=== PATIENT | female | born 1955 | race African-American/Black ===

== ENCOUNTER 2018-03-21 06:29 | Day surgery (SDC) | payer OTHER, MEDICARE ==
[~2018-03-21] VITALS: Ht 160 cm; Wt 84.1 kg
--- NOTE | ~2018-03-21 | OP ---
PATIENT NAME: DEON MASTERS MEDICAL RECORD: [id number] :59 LOCATION:D.M2 D.2102 ADMISSION DATE: SURGEON: CHRISTOPHER DUQUE MD DATE OF OPERATION: 03/21/2018 REFERRING PHYSICIAN: Jacob العراقي MD PREOPERATIVE DIAGNOSIS: Secondary hyperparathyroidism of renal origin. POSTOPERATIVE DIAGNOSIS: Secondary hyperparathyroidism of renal origin. OPERATION PERFORMED: Neck exploration with excision of two and one-half parathyroid glands. SURGEON: Christopher Duque MD ANESTHESIA: General endotracheal per PETAL SHAPER HAND. PREOPERATIVE NOTE: Ms. Masters is a very nice 62-year-old -Somali female with chronic renal insufficiency, who is not on dialysis but has severe secondary hyperparathyroidism. She is brought to the hospital today on Dr. Jacob العراقي's referral for her to undergo neck exploration and hopefully [id number] gland parathyroidectomy. Under general endotracheal anesthesia, the patient was placed in the supine position and prepped and draped in a sterile manner. A transverse cervical-collar type incision was made and flaps were raised with electrocautery. The strap muscles were in the midline and the anterior surface of the thyroid revealed. Dissection on the left first proceeded with mobilization of the mid and lower poles and full mobilization of the superior pole of the left lobe of the gland. The recurrent laryngeal nerve was identified and carefully protected throughout the operation. I rather quickly found adjacent to the superior pole of the thyroid that there was a large parathyroid gland. It was dissected from the surrounding tissues. Hemostasis was obtained with the Harmonic scalpel. The lesion was totally excised and sent for frozen section, which confirmed it to be parathyroid. I dissected inferiorly and I was unable to identify a left lower gland. I went on then to the patient's right side. The same thing was done with mobilization of the thyroid lobe and identification and preservation of the recurrent laryngeal nerve. Harmonic scalpel was again used for greater part of the dissection. The patient was found to have an enlarged right upper parathyroid and a large lower right parathyroid gland. The lower gland was excised and confirmed on frozen section to be parathyroid. The upper gland was divided with Harmonic scalpel, leaving approximately half of the gland, which appeared to be adequately vascularized. The excised specimen was sent for frozen section, which confirmed it to be parathyroid. I went back to the patient's left side and did extended dissection in upper mediastinum, tracheoesophageal groove, and in the carotid sheath; and I was unable to locate the left inferior parathyroid gland. I did excise some tissue which I first thought might be a lymph node, which actually was partially cystic and filled with clear fluid, which ruptured during its dissection. The lesion contained about 1 to 2 or 3 cc of this fluid. That lesion was sent for frozen section and was identified as fat. During the dissection, I took another specimen from lower neck and upper mediastinum, which I had no confidence that it was parathyroid and this was sent for just permanent section. I elected to stop the procedure without finding the left lower OPERATIVE REPORT [id number] DEON MASTERS parathyroid gland. The wound was irrigated with antibiotic-containing saline and hemostasis deemed adequate, though the patient was given 20 mcg of DDAVP. I drained the wound with a 10-mm fluted flat drain, which was split and used to drain both sides of the trachea. It was brought out through a midline stab incision and attached to suction. The strap muscles were then reapproximated in the midline with interrupted 3-0 Vicryl. The wound was then irrigated with and infiltrated with 0.25% Marcaine without epinephrine. The platysma was then reapproximated with interrupted inverted 3-0 Vicryl and skin was closed with a running intracuticular 4-0 Stratafix. The incision was then sealed with glue and dressed with Maxorb Ag, Tegaderm, and Cavilon skin prep. A chlorhexidine BioPatch was placed around the drain at its exit site and further sterile dressings over that. The patient was extubated and the cord was examined and noted to be in normal position. Subsequently, the patient was fully awakened, and with no respiratory distress, taken to the recovery room. Blood loss during the operation, I estimated, about 25 cc, none was replaced. All sponges, instruments, and needles were accounted for. One 10-mm flat Bard fluted drain was utilized and there were, I believe, a total of 5 specimens sent for frozen and permanent section histology. PLAN: The patient will need to stay in the hospital at least overnight so that we can monitor her response as to serum calcium levels, etc. It is quite possible that she will be stable and able to go home tomorrow. The J-P drain should be hopefully removed tomorrow morning, certainly before she goes home. TRANSINT:[id number] Voice Confirmation ID: [id number] DOCUMENT ID: [id number] CHRISTOPHER DUQUE MD CC: JACOB العراقي [phone] DICTATION DATE: 03/21/18 132 SNAGGER: 03/21/18 194 [facility] [address] [place] [id number]
[~2018-03-21 06:29] MED LIST: CLARITIN 10 MG10 MG PO; COZAAR100 MG PO; FERROUS SULFAT325 MG PO; HYDROCODON-ACE1 EAC7 PO; IMODIUM2 MG PO; LASIX20 MG PO; LIPITOR10 MG; LIPITOR10 MG PO; MAXITROL EYE DRO5 ML EACH EYE; MUCOMYST 2800 MG/4 M PO; NEO; NOVOLOG MIX 70/10 ML SQ; PLAQUENIL200 MG PO; PLAVIX75 MG PO; POLY; RENVELA800 MG PO; TOPAMAX25 MG PO; ULTRAM50 MG PO; VENOFER100 MG/5 M IV; VITAMIN B-12500 MC1 PO; VITAMIN D31000 UNIT PO; [UNRECOGNIZED DRUG - OTHER]; [UNRECOGNIZED DRUG - OTHER]; hydroxychloroquine
[2018-03-21 06:53] LABS: BASOPHILS 0.5 % (0-2); HEMOGLOBIN 11.3 g/dL (12-16); IMMATURE GRANULOCYTES 0.3 % (0-5); LYMPHOCYTES 21.7 % (15-50); MCH 31.8 pg (26.0-34.0); MCHC 32.3 g/dL (31.0-37.0); MCV 98.6 fL (80.0-100.0); MEAN PLATELET VOLUME 8.9 fL (7.4-10.4); MONOCYTES 5.5 % (2-11); PLATELET COUNT 211 10x3/uL (130-400); RBC 3.55 10x6/uL (4.00-5.40); WBC 9.1 10x3/uL (4.8-10.8)
[2018-03-21 07:05] LABS: ANION GAP 15.1 mmol/L (8-16); CALCIUM 9.3 mg/dL (8.5-10.1); CARBON DIOXIDE 27.7 mmol/L (21.0-32.0); CREATININE - SERUM 6.7 mg/dL (0.6-1.3); POTASSIUM - SERUM 3.8 mmol/L (3.5-5.1)
[2018-03-21 07:30] LABS: APTT 29.4 SECONDS (22.8-39.4); INR 0.96 (0.85-1.17); PROTIME 12.4 SECONDS (11.6-15.0)
[2018-03-21] MEDS ORDERED: NOVOLIN 70/30 110 ML SC (09:25)
[2018-03-21] MEDS ORDERED: NORVASC5 MG PO (09:29)
[2018-03-21] MEDS ORDERED: HYDRALAZINE HCL50 MG PO (09:30)
[2018-03-21 09:42] VITALS: BMI 32.8
[2018-03-21 13:58] VITALS: BP 134/63
[2018-03-21 15:19] VITALS: BP 134/63; Ht 160 cm; Wt 84.1 kg
[2018-03-21 16:47] LABS: CALCIUM 8.9 mg/dL (8.5-10.1)
[2018-03-21 16:52] VITALS: BP 124/65
[2018-03-21 20:00] VITALS: BP 106/59
[2018-03-22] VITALS: BP 105/58
[2018-03-22 04:00] VITALS: BP 94/47
[2018-03-22 08:38] VITALS: BP 98/52
[2018-03-22 12:01] VITALS: BP 112/58
[2018-03-22 16:31] VITALS: BP 118/64
== END 2018-03-22 20:28 | disposition home or self-care (01) ==
LOC: D.OPS 06:29 → D.M2 13:40 → D.OPS 03-22 20:28
PROVIDERS: Internal Medicine Nephrology; Surgery
DX: N25.81 Secondary hyperparathyroidism of renal origin (principal)

== ENCOUNTER 2018-07-31 16:10 | Inpatient (IN) | payer OTHER, MEDICARE ==
[~2018-07-31] VITALS: Ht 160 cm; Wt 89.7 kg
[~2018-07-31 16:10] MED LIST changes: +HYDRALAZINE HCL50 MG PO; +NORVASC5 MG PO; +NOVOLIN 70/30 110 ML SC
--- NOTE | 2018-07-31 16:51 | NUR ---
PT LEAVING THE ED VIA WHEELCHAIR AT THIS TIME, GOING TO MEDICAL IMAGING. WOUND CULTURE SWAB SENT TO THE LAB.
[2018-07-31 17:04] LABS: HEMATOCRIT 33.3 % (36.0-48.0); HEMOGLOBIN 10.8 g/dL (12-16); MCH 31.2 pg (26.0-34.0); MCHC 32.4 g/dL (31.0-37.0); MCV 96.2 fL (80.0-100.0); MEAN PLATELET VOLUME 9.4 fL (7.4-10.4); PLATELET COUNT 270 10x3/uL (130-400); RBC 3.46 10x6/uL (4.00-5.40); RDW 14.4 % (11.5-14.5); WBC 23.7 10x3/uL (4.8-10.8)
[2018-07-31 17:12] LABS: ALBUMIN 2.9 g/dL (3.4-5.0); ANION GAP 16.6 mmol/L (8-16); BILIRUBIN - TOTAL 0.45 mg/dL (0.2-1.3); CALCIUM 8.5 mg/dL (8.5-10.1); CARBON DIOXIDE 27.2 mmol/L (21.0-32.0); CREATININE - SERUM 6.7 mg/dL (0.6-1.3); POTASSIUM - SERUM 3.8 mmol/L (3.5-5.1); PROTEIN - SERUM 8.7 g/dL (6.4-8.2)
--- NOTE | 2018-07-31 17:40 | NUR ---
URINE SAMPLE SENT TO THE LAB AT THIS TIME.
[2018-07-31 17:47] LABS: LYMPHOCYTES 7 % (15-50); MONOCYTES 2 % (2-11); NEUTROPHILS 91 % (40-80); PLATELET ESTIMATE NORMAL
[2018-07-31 17:54] LABS: APPEARANCE HAZY (CLEAR); BILIRUBIN NEGATIVE (NEGATIVE); COLOR YELLOW (YELLOW); GLUCOSE NEGATIVE (NEGATIVE); KETONE NEGATIVE (NEGATIVE); NITRITE NEGATIVE (NEGATIVE); PROTEIN 1+ mg/dL (NEGATIVE); UROBILINOGEN NORMAL (NORMAL)
[2018-07-31 17:55] LABS: BACTERIA MANY /hpf (NONE SEEN); RED CELLS - URINE 0-5 /hpf (0-5); WHITE CELLS - URINE >50 /hpf (0-5)
--- NOTE | 2018-07-31 19:03 | NUR ---
HAND-OFF REPORT GIVEN TO JACOB Fernandez RN.
[2018-07-31 20:57] VITALS: BP 115/76
--- NOTE | 2018-07-31 21:04 | NUR ---
REPORT RECEIVED FROM JACOB CANDELARIO RN.
[2018-08-01] VITALS: BP 109/43; BP 162/95
[2018-08-01 01:46] VITALS: BP 152/93; BMI 36.7
[2018-08-01 04:00] VITALS: BP 116/44
[2018-08-01] MEDS ORDERED: RENVELA800 MG PO (04:45)
[2018-08-01 05:50] LABS: ANION GAP 15.2 mmol/L (8-16); CALCIUM 8.1 mg/dL (8.5-10.1); CARBON DIOXIDE 27.4 mmol/L (21.0-32.0); CREATININE - SERUM 7.7 mg/dL (0.6-1.3); PHOSPHOROUS 2.5 mg/dL (2.5-4.9); POTASSIUM - SERUM 3.6 mmol/L (3.5-5.1)
[2018-08-01 06:12] LABS: BASOPHILS 0.3 % (0-2); EOSINOPHILS 1.7 % (0-7); HEMATOCRIT 29.1 % (36.0-48.0); HEMOGLOBIN 9.2 g/dL (12-16); IMMATURE GRANULOCYTES 0.5 % (0-5); LYMPHOCYTES 5.8 % (15-50); MCH 30.5 pg (26.0-34.0); MCHC 31.6 g/dL (31.0-37.0); MCV 96.4 fL (80.0-100.0); MEAN PLATELET VOLUME 9.6 fL (7.4-10.4); MONOCYTES 9.4 % (2-11); NEUTROPHILS 82.3 % (40-80); PLATELET COUNT 260 10x3/uL (130-400); RBC 3.02 10x6/uL (4.00-5.40); RDW 14.5 % (11.5-14.5); WBC 18.4 10x3/uL (4.8-10.8)
[2018-08-01 09:57] VITALS: BP 115/57
[2018-08-01 12:39] VITALS: BMI 36.6
[2018-08-01 16:30] VITALS: Ht 160 cm; Wt 89.7 kg
--- NOTE | 2018-08-01 17:07 | NUR ---
WOUND CULTURE SENT TO LAB FROM RIGHT FOOT.
--- NOTE | 2018-08-01 18:45 | NUR ---
PT LAYING IN BED WITH EYES CLOSED, RESPIRATIONS EVEN AND UNALBORED, CALL LIGHT IN REACH, WILL CONTINUE PLAN OF CARE.
--- NOTE | 2018-08-01 19:55 | NUR ---
INITIAL ASSESSMENT COMPLETED - PT A/O X4, PAIN 02/06. ADMINISTERED PRESCRIBED ANALGESIC PER JUL. R FA IV SL, PATENT, C/D/I. NO OTHER NEEDS NOTED AT THIS TIME. VSS. RR EVEN AND UL. CL IN REACH, SR UP X2, BED IN LOWEST POSITION. WCTM AND FOLLOW POC.
[2018-08-01 20:00] VITALS: BP 121/31
--- NOTE | 2018-08-01 20:00 | NUR ---
INITIAL ASSESSMENT COMPLETED - PT A/O X4, R HAND PIV SL'D, PATENT, C/D/I. IVPB K+ BEGAN AT 2029. PT STATES "IT BURNED AND I WAS NAUSEATED, AND I FELT LIKE I WAS ABOUT TO PASS OUT, BUT IT'S GONE AWAY NOW MOSTLY." NOTIFIED RENAL CLERICAL SUPERVISOR RV SERVICE TECHNICIAN FOR ANTIEMETIC, AND NO CALL BACK. LINE FLUSHED WITH D5NS PER ORDER AND SECOND IVPBG K+ INFUSION STARTED AT 2144. NO C/O PAIN OR DISCOMFORT AT SITE. PT STATES THE TINGLING IN HER HANDS HAS LEFT AND HER EXTREMITIES FEEL NORMAL NOW. PIV STILL PATENT, C/D/I. PT NOW RESTING IN BED COMFORTABLY, NO OTHER NEEDS NOTED AT THIS TIME. CL IN REACH, SR UP X2, BED IN LOWEST POSITION. WCTM AND FOLLOW POC.
[2018-08-01 21:28] LABS: MAGNESIUM - SERUM 1.7 mg/dL (1.8-2.4); VANCOMYCIN - RANDOM 9.1 ug/mL (10.0-20.0)
--- NOTE | 2018-08-02 03:05 | NUR ---
TO PT ROOM VIA FSBS Q5. BS 126, PT WAS RESTING IN BED WITH EYES CLOSED. RR EVEN AND UL, NO S/S OF DISTRESS. 3 AM ABX STARTED. NO OTHER NEEDS AT THIS TIME. VSS. CL IN REACH, SR UP X2, BED IN LOWEST POSITION.
[2018-08-02 04:00] VITALS: BP 118/46
[2018-08-02 06:17] LABS: BASOPHILS 0.3 % (0-2); EOSINOPHILS 2.7 % (0-7); HEMATOCRIT 28.5 % (36.0-48.0); HEMOGLOBIN 9.1 g/dL (12-16); IMMATURE GRANULOCYTES 0.5 % (0-5); MCH 30.7 pg (26.0-34.0); MCHC 31.9 g/dL (31.0-37.0); MCV 96.3 fL (80.0-100.0); MEAN PLATELET VOLUME 9.5 fL (7.4-10.4); MONOCYTES 9.7 % (2-11); NEUTROPHILS 78.8 % (40-80); PLATELET COUNT 266 10x3/uL (130-400); RBC 2.96 10x6/uL (4.00-5.40); RDW 14.6 % (11.5-14.5); WBC 15.6 10x3/uL (4.8-10.8)
[2018-08-02 06:34] LABS: ANION GAP 16.1 mmol/L (8-16); CALCIUM 8.1 mg/dL (8.5-10.1); CARBON DIOXIDE 26.7 mmol/L (21.0-32.0); CREATININE - SERUM 8.8 mg/dL (0.6-1.3); POTASSIUM - SERUM 3.8 mmol/L (3.5-5.1); VANCOMYCIN - RANDOM 9.4 ug/mL (10.0-20.0)
[2018-08-02 06:39] LABS: PHOSPHOROUS 3.3 mg/dL (2.5-4.9)
[2018-08-02 09:34] VITALS: BP 115/58
--- NOTE | 2018-08-02 11:38 | NUR ---
I have reviewed this patient and I concur with the Shift Assessment completed by the Licensed Practical Nurse today this shift.
[2018-08-02 12:13] VITALS: BP 131/54
[2018-08-02 20:00] VITALS: BP 106/47
--- NOTE | 2018-08-02 20:00 | NUR ---
INITIAL ASSESSMENT COMPLETED - PT A/O X4, STATES SHE HAD A MUCH BETTER DAY TODAY. R FA PIV INFILTRATED, DC'S WITH CATH INTACT. VSS AND RR EVEN AND UL ON ROOM AIR. R FOOT DRESSING C/D/I. DENIES ANY PAIN OR NEEDS AT THIS TIME. WCTM AND FOLLOW POC.
--- NOTE | 2018-08-02 22:15 | NUR ---
20G INSERTED INTO R FA PER IZAIAH GALLAGHER. PIV PATENT, C/D/I.
[2018-08-03] VITALS: BP 110/50
[2018-08-03 04:00] VITALS: BP 110/54
[2018-08-03 05:56] LABS: BASOPHILS 0.4 % (0-2); EOSINOPHILS 3.4 % (0-7); HEMOGLOBIN 9.1 g/dL (12-16); IMMATURE GRANULOCYTES 0.5 % (0-5); LYMPHOCYTES 8.1 % (15-50); MCH 30.2 pg (26.0-34.0); MCHC 31.4 g/dL (31.0-37.0); MCV 96.3 fL (80.0-100.0); MEAN PLATELET VOLUME 9.5 fL (7.4-10.4); MONOCYTES 10.3 % (2-11); NEUTROPHILS 77.3 % (40-80); PLATELET COUNT 274 10x3/uL (130-400); RBC 3.01 10x6/uL (4.00-5.40); RDW 14.4 % (11.5-14.5); WBC 13.6 10x3/uL (4.8-10.8)
[2018-08-03 06:23] LABS: ANION GAP 13.3 mmol/L (8-16); CALCIUM 7.7 mg/dL (8.5-10.1); PHOSPHOROUS 3.1 mg/dL (2.5-4.9); POTASSIUM - SERUM 3.3 mmol/L (3.5-5.1); VANCOMYCIN - RANDOM 6.2 ug/mL (10.0-20.0)
--- NOTE | 2018-08-03 07:45 | NUR ---
AM ROUNDS COMPLETED. INTRODUCED MYSELF TO PT PRIMARY RN FOR TODAYS SHIFT. PT IS A&O SITTING UP IN BED RESTING QUIETLY. SHIFT ASSESSMENT COMPLETED. PT STATES SHE IS FEELING WELL OVERALL. DENIES ANY CURRENT PAIN OR NEEDS. CL IN REACH, BED IN LOWEST, SIDE RAILS X2. WILL CTM.
[2018-08-03 08:50] VITALS: BP 143/60
[2018-08-03 12:40] VITALS: BP 138/65
--- NOTE | 2018-08-03 15:06 | NUR ---
PT C/O ACHING HEADACHE REQUESTING AND PROVIDED WITH PRN TRAMADOL. PT VOICED THANKS AND IS RESTING QUIETLY IN BED WITH AT BEDSIDE. CL IN REACH, BED IN LOWEST, SIDE RAILS X2. NO CURRENT NEEDS. WILL CTM.
--- NOTE | 2018-08-03 16:09 | NUR ---
AT BEDSIDE PERFORMING DRSG CHANGE. NO NEW ORDERS OR DRSG CHANGES. HE WILL CONTINUE TO TREAT HIMSELF. PT RESTING QUIETLY IN BED WITH AT BEDSIDE. NEW DRSG NOW IN PLACE. CDI NO CURRENT NEEDS.
[2018-08-03 20:00] VITALS: BP 122/45
--- NOTE | 2018-08-03 20:00 | NUR ---
INITIAL ASSESSMENT COMPLETED - PT RESTING IN BED. A/O X4. R FA PIV INFUSING AT 5 ML/HR KVO. REINFORCED WITH PT TO MAINTAIN NPO STATUS AFTER MIDNIGHT, PT VERBALIZED UNDERSTANDING. R FOOT DRESSING C/D/I. NO PAIN OR DISCOMFORT NOTED AT THIS TIME. WCTM AND FOLLOW POC. CL IN REACH, SR UP X2, BED IN LOWEST POSITION.
[2018-08-04] VITALS: BP 126/48
[2018-08-04 04:00] VITALS: BP 139/50
[2018-08-04 06:07] LABS: BASOPHILS 0.5 % (0-2); EOSINOPHILS 3.3 % (0-7); HEMATOCRIT 29.2 % (36.0-48.0); HEMOGLOBIN 9.2 g/dL (12-16); IMMATURE GRANULOCYTES 0.4 % (0-5); LYMPHOCYTES 10.1 % (15-50); MCH 30.4 pg (26.0-34.0); MCHC 31.5 g/dL (31.0-37.0); MCV 96.4 fL (80.0-100.0); MEAN PLATELET VOLUME 9.3 fL (7.4-10.4); MONOCYTES 12.1 % (2-11); NEUTROPHILS 73.6 % (40-80); PLATELET COUNT 283 10x3/uL (130-400); RBC 3.03 10x6/uL (4.00-5.40); RDW 14.5 % (11.5-14.5); WBC 11.7 10x3/uL (4.8-10.8)
[2018-08-04 06:26] LABS: ANION GAP 16.7 mmol/L (8-16); CALCIUM 7.5 mg/dL (8.5-10.1); CARBON DIOXIDE 29.8 mmol/L (21.0-32.0); POTASSIUM - SERUM 3.5 mmol/L (3.5-5.1); VANCOMYCIN - RANDOM 21.8 ug/mL (10.0-20.0)
[2018-08-04 06:27] LABS: PHOSPHOROUS 4.2 mg/dL (2.5-4.9)
--- NOTE | 2018-08-04 07:45 | NUR ---
AM ROUNDS COMPLETED. INTRODUCED MYSELF TO PT PRIMARY RN FOR TODAYS SHIFT. PT IS A&O SITTING UP IN BED RESTING QUIETLY. PT IS NPO FOR PROCEDURE TODAY AND VERBALIZED UNDERSTANDING. SHIFT ASSESSMENT COMPLETED. NO CHANGES NOTED FROM YESTERDAYS ASSESSMENT. PTS R.FOOT REMAINS WRAPPED FROM YESTERDAY. SCANT AMOUNT OF SEROSANGEOUS NOTED ON DRSG. WILL LEAVE FOR NOW PER . PT DENIES ANY CURRENT PAIN OR NEEDS AT THIS TIME. CL IN REACH, BED IN LOWEST, SIDE RAILS X2. WILL CTM.
[2018-08-04 08:48] VITALS: BP 116/67
--- NOTE | 2018-08-04 08:55 | NUR ---
PT HAD HIBICLENS BATH AND IS NPO READY FOR SURGERY CONSENTS SIGNED AND PLACED IN CHART. PT DIDNT TAKE ANY MORNING MEDICATIONS SHE STATES SHE DOESNT TAKE THEM IN THE MORNING ON DIALYSIS DAYS. DIALYSIS CALLED FOR PT. BROUGHT PT DOWN VIA BED. NO FURTHER NEEDS. WILL CTM.
--- NOTE | 2018-08-04 10:15 | NUR ---
DIALYSIS CALLED STATING PT STATES SHE IS SUPPOSE TO COME OFF DIALYSIS FOR SURGERY. CALLED SURGERY AND SPOKE TO SHARI AND SHE STATES PT IS SCHEDULED A LITTLE LATER AND PT WILL HAVE ENOUGH TIME TO FINISH WHICH WAS ABOUT AN HOUR LEFT. DIALYSIS WILL CONTINUE NO CURRENT NEEDS.
--- NOTE | 2018-08-04 11:55 | NUR ---
SURGERY CALLED INQUIRING IF PT WAS BACK. PT HAS 15MINS LEFT, WILL CALL SURGERY SOON PT IS BACK.
--- NOTE | 2018-08-04 12:10 | NUR ---
ON FLOOR INQUIRING WHY PT WENT TO DIALYSIS. HE HAD PLANNED SURGERY FOR 11 AND IT WAS DELAYED R/T ME LETTING HER GO. DISCUSSED SITUATION WITH HIM AND APOLOGIZED AND WILL GET PT TO SURGERY SOON POSSIBLE. HE VOICED THANKS. NO FURTHER NEEDS.
--- NOTE | 2018-08-04 12:12 | NUR ---
WENT TO DIALYSIS AND PICKED UP PT AND BROUGHT HER STRAIGHT TO SURGERY REQUESTED. NO PRE-OP MEDICATIONS ORDERED TO GIVE. RETURNED PTS GLASSES AND CELL PHONE TO HER ROOM. NO FURTHER NEEDS.
--- NOTE | 2018-08-04 13:24 | NUR ---
PT BACK FROM PROCEDURE AWAKE AND ALERT RESTING SITTING UP IN BED. PT HAS NEW DRSG IN PLACE CDI NO S/S OF BLEEDING OR DRAINAGE NOTED AT THIS TIME. VSS AND BEING MONITERED PER POST PROCEDURE POLICY. PT HUNGRY, ORDERED LUNCH TRAY. NO CURRENT NEEDS. WILL CTM.
--- NOTE | 2018-08-04 14:25 | NUR ---
PT SITTING UP IN BED RESTING QUIETLY WITH AT BEDSIDE. VSS AND STILL BEING MONITERED PER POST PROCEDURE PROTOCOL. PTS R.FOOT REMAINS WITH DRSG CDI. NO CURRENT NEEDS. WILL CTM.
[2018-08-04 15:44] VITALS: BP 127/62
--- NOTE | 2018-08-04 15:51 | NUR ---
PTS R.FA INFILTRATED. D/C WITH CATHETER TIP FULLY INTACT AND RESTARTED NEW 20GUAGE TO R.FA X3 STICKS. DRSG CDI AND SWAB CAPS IN USE. NO CURRENT NEEDS. WILL CTM.
--- NOTE | 2018-08-04 16:19 | NUR ---
PT C/O HER R.ARM HURTING AND SWELLING. THE SWELLING IS GENERALIZED SO ITS HARD TO TELL EXACT REASON. FLUSHED NEW PIV AND IT APPEARS PATENT, EASY FLUSH AND BLOOD RETURN HOWEVER PT HAS BLOWN VEINS FROM MISSED PIV ATTEMPTS. ANBX DONE INFUSING SL R.FA PIV AND WILL CONTINUE TO MONITER IT FOR NOW BUT MOST LIKELY WILL HAVE TO RESITE EVEN FURTHER UP HER ARM. PROVIDED PT WITH PRN TRAMADOL REQUESTED FOR THE PAIN. FSBS 214 PROVIDED PT WITH INSULIN PER SS. PT SITTING UP IN BED RESTING QUIETLY AND DENIES ANY FURTHER NEEDS AT THIS TIME. CL IN REACH, BED IN LOWEST, SIDE RAILS X2. WILL CTM.
--- NOTE | 2018-08-04 17:01 | MORECARE ---
CASE MANAGEMENT DISCHARGE SUMMARY PATIENT: DEON MILLER UNIT: [id number] ADM DATE: 07/31/18 AGE: 63 : [birth year] SEX: F ROOM/BED: D.5360 AUTHOR: HUBER THOMPSON PHYSICIAN: REFERRING PHYSICIAN: AYO MAURICIO MD DATE OF SERVICE: 08/04/18 Discharge Plan Patient Name: DEON MILLER Facility: [facility]:[place] : 1955 Planned Disposition: Home Anticipated Discharge Date: Discharge Date: Expected LOS: Initial Reviewer: [id number] Initial Review Date: 07/31/2018 Generated: 08/04/18 6:00 pm Comments DCP- Discharge Planning Updated by [email or web address]: Klever Chavez on 08/04/18 3:[address] Patient Name: DEON MILLER Admission Status: ER Accout number: [id number] Admission Date: 07-31-2018 : 1955 Admission Diagnosis:TYPE 2 DIABETES MELLITUS WITH FOOT ULCER Attending: Ayo Mauricio Current LOS: 4 Anticipated DC Date: Planned Disposition: Home Primary Insurance: [employer] POS Discharge Planning Comments: CM MET WITH PT AND SPOUSE IN ROOM TO DISCUSS DISCHARGE PLANNING AND NEEDS. DEON MILLER provided verbal consent to discuss current and ongoing needs with/in the presence of: SPOUSE, AVRIL. PT REPORTS LIVING AT HOME INDEPENDENTLY WITH HER SPOUSE. PT HAS NO MEDICAL EQUIPMENT AND NO OUTSIDE SERVICES ASSISTING IN THE HOME. CM DISCUSSED AVAILABILITY OF HOME HEALTH, REHAB SERVICES AND MEDICAL EQUIPMENT. PT HAS UNKNOWN DISCHARGE NEEDS, IS WAITING ON THE DOCTOR TO DETERMINE WEIGHT BEARING FOR HER FOOT AND IF SHE WILL NEED A WHEELCHAIR OR WALKER. PT REPORTS HER SPOUSE WILL PICK HER UP FOR DISCHARGE HOME. PT TO DISCHARGE HOME WITH SPOUSE, CM TO ASSIST WITH MEDICAL EQUIPMENT IF ANY IS NEEDED / ORDERED. International Account Executive: Klever Chavez DCPIA - Discharge Planning Initial Assessment Updated by [email or web address]: Klever Chavez on 08/04/18 4:51 pm * Is the patient Alert and Oriented? Yes * How many steps to enter\exit or inside your home? * PCP MISTY HYDE * Pharmacy [facility] IN [place] * Preadmission Environment Home with Family * ADLs Independent * Equipment None * Other Equipment NO MEDICAL EQUIPMENT PROVIDER PREFERENCE * List name and contact numbers for known caregivers / representatives who currently or will assist patient after discharge: AVRIL MILLER, SPOUSE, * Verbal permission to speak to the caregivers and representatives has been obtained from the patient. Yes * Community resources currently utilized Other * Please name any agencies selected above. [facility], [facility], MWF, [id number], DRIVES SELF * Additional services required to return to the preadmission environment? No * Can the patient safely return to the preadmission environment? Yes * Has this patient been hospitalized within the prior 30 days at any hospital? No Patient Name: DEON MILLER Page [phone] at 1701 All edits/amendments must be made on the electronic document DICTATION DATE: 08/04/181699 LABORATORY CLERK: JUWAN 08/04/181699 RPT#: [id number] DC DATE: STATUS: ADM IN [facility] [address] [place] [address] END OF REPORT
--- NOTE | 2018-08-04 19:05 | NUR ---
AWAKE AND ALERT IN BED ANSWERS QUESTIONS. LCTA AND SKIN WARM AND DRY, BED IS LOW AND CALL LIGHT IS IN REACH. DRSG IS IN PLACE ON RT FOOT WOUND NOT OBSERVED.
[2018-08-04 20:00] VITALS: BP 127/63
--- NOTE | 2018-08-04 21:05 | NUR ---
DCED IV CATH INTACT AND RESTARTED TIMES 2 TRIES TO RT HAND WITH 20 GA
[2018-08-04 23:00] VITALS: BP 113/54
--- NOTE | 2018-08-05 01:59 | NUR ---
I have reviewed this patient and I concur with the Shift Assessment completed by the Licensed Practical Nurse today this shift.
[2018-08-05 04:30] VITALS: BP 118/59
[2018-08-05 05:37] LABS: BASOPHILS 0.3 % (0-2); EOSINOPHILS 3.1 % (0-7); HEMATOCRIT 28.3 % (36.0-48.0); HEMOGLOBIN 8.9 g/dL (12-16); IMMATURE GRANULOCYTES 0.5 % (0-5); LYMPHOCYTES 13.8 % (15-50); MCH 30.2 pg (26.0-34.0); MCHC 31.4 g/dL (31.0-37.0); MCV 95.9 fL (80.0-100.0); MEAN PLATELET VOLUME 9.2 fL (7.4-10.4); MONOCYTES 13.1 % (2-11); NEUTROPHILS 69.2 % (40-80); PLATELET COUNT 306 10x3/uL (130-400); RBC 2.95 10x6/uL (4.00-5.40); RDW 14.3 % (11.5-14.5); WBC 11.2 10x3/uL (4.8-10.8)
[2018-08-05 05:46] LABS: ANION GAP 14.1 mmol/L (8-16); CALCIUM 7.1 mg/dL (8.5-10.1); CARBON DIOXIDE 33.2 mmol/L (21.0-32.0); CREATININE - SERUM 6.2 mg/dL (0.6-1.3); PHOSPHOROUS 3.8 mg/dL (2.5-4.9); POTASSIUM - SERUM 3.3 mmol/L (3.5-5.1); VANCOMYCIN - RANDOM 16.5 ug/mL (10.0-20.0)
--- NOTE | 2018-08-05 07:30 | NUR ---
A/A/OX4. DENIES ANY PAIN OR DISCOMFORT. DRESSING TO RIGHT FOOT C/D/I. NO REQUESTS VOICED. ASSESSMENT COMPLETED. BED IN LOW POSITION AND LOCKED. SIDERAILS UP X 2 AND CALL LIGHT IN REACH. WILL CONTINUE POC.
[2018-08-05 09:30] VITALS: BP 115/62
[2018-08-05 12:26] VITALS: BP 121/63
--- NOTE | 2018-08-05 16:11 | NUR ---
AGREE WITH RN CARDIOVASCULAR ASSESSMENT
[2018-08-05 17:16] VITALS: BP 109/52
--- NOTE | 2018-08-05 19:33 | NUR ---
FAMILY IS WITH PT AT THIS TIME BED IS LOW WITH CALL LIGHT IN PLACE ALERT AND ORIENTED AT THIS TIME LCTA AND BANDAGE IS IN PLACE TO RT FOOT
[2018-08-05 19:55] VITALS: BP 120/64
[2018-08-05 23:55] VITALS: BP 102/61
--- NOTE | 2018-08-06 00:21 | NUR ---
DURING ROUTINE VS CHECK SPO2 DOWN TO 80. NO SOB NO PAIN NO LABORED BREATHING...LCTA IN ALL GARCIA COUGH MADE NO CHANGE RESP CALLED AN D O2 AT 2 L NC APPLIED
--- NOTE | 2018-08-06 00:32 | NUR ---
SPO2 UP TO 95 % LOWERED TO 1 LITER
--- NOTE | 2018-08-06 00:43 | NUR ---
I have reviewed this patient and I concur with the Shift Assessment completed by the Licensed Practical Nurse today this shift.
[2018-08-06 03:55] VITALS: BP 113/64
--- NOTE | 2018-08-06 06:08 | NUR ---
TESTED ON RA SPO2 96 %
[2018-08-06 06:19] LABS: BASOPHILS 0.2 % (0-2); HEMATOCRIT 28.1 % (36.0-48.0); HEMOGLOBIN 8.8 g/dL (12-16); IMMATURE GRANULOCYTES 0.5 % (0-5); LYMPHOCYTES 12.7 % (15-50); MCH 30.1 pg (26.0-34.0); MCHC 31.3 g/dL (31.0-37.0); MCV 96.2 fL (80.0-100.0); MEAN PLATELET VOLUME 9.2 fL (7.4-10.4); MONOCYTES 12.2 % (2-11); NEUTROPHILS 70.4 % (40-80); PLATELET COUNT 282 10x3/uL (130-400); RBC 2.92 10x6/uL (4.00-5.40); RDW 14.4 % (11.5-14.5); WBC 10.7 10x3/uL (4.8-10.8)
[2018-08-06 06:33] LABS: ANION GAP 16.3 mmol/L (8-16); CARBON DIOXIDE 30.9 mmol/L (21.0-32.0); POTASSIUM - SERUM 3.2 mmol/L (3.5-5.1); VANCOMYCIN - RANDOM 14.6 ug/mL (10.0-20.0)
[2018-08-06 06:52] LABS: CREATININE - SERUM 7.8 mg/dL (0.6-1.3)
[2018-08-06 06:56] LABS: CALCIUM 6.6 mg/dL (8.5-10.1)
--- NOTE | 2018-08-06 07:30 | NUR ---
A/A/OX4. DENIES ANY PAIN OR DISCOMFORT. RESP EVEN AND UNLABORED WITH PULSE OX READING OF 96%. DRESSING TO RIGHT FOOT C/D/I. ASSESSMENT COMPLETED, SIDERAILS UP X 2, BED WHEELS LOCKED AND CALL LIGHT IN REACH. WILL CONTINUE POC.
[2018-08-06 08:05] VITALS: BP 128/68
[2018-08-06 12:26] VITALS: BP 128/62
--- NOTE | 2018-08-06 13:55 | NUR ---
AGREE WITH ENVELOPE SEALER OPERATOR ASSESSMENT
--- NOTE | 2018-08-06 15:30 | NUR ---
PT HAS VISIBLE JERKING MOVEMENTS OF EXTREMITIES. CALCIUM LEVEL 6.6 CALLED TO COREY AND ORDERS RECEIVED. CALCIUM GLUCONATE 1 GM IN 100CC INFUSED WITHOUT DIFFICULTY AND PT TOLERATED WELL.
[2018-08-06 15:49] VITALS: BP 143/65
--- NOTE | 2018-08-06 19:32 | NUR ---
GREETED PATIENT AND INTRODUCED MYSELF HER NURSE FOR THE EVENING. PATIENT IS LAYING IN BED AND DENIES ANY NEEDS AT THIS TIME. CALL LIGHT IN REACH.
[2018-08-06 19:55] VITALS: BP 106/49
--- NOTE | 2018-08-06 23:39 | NUR ---
ADMINISTERED LOMOTIL PER PATIENTS REQUEST. PATIENT STATED THAT SHE HAS BEEN EXPERIENCING DIARRHEA TODAY. TM. CALL LIGHT IN REACH.
--- NOTE | 2018-08-07 02:43 | NUR ---
DC PERIPHERAL IV IN RIGHT HAND. IV INFILTRATED. PATIENTS HAND ELEVATED AND HOT WASH CLOTH APPLIED TO HELP WITH SWELLING.
--- NOTE | 2018-08-07 02:55 | NUR ---
PATIENT IS STILL EXPERIENCING VISIBLE JERKING MOVEMENTS OF EXTREMITIES AFTER CALCIUM GLUCONATE 1 GM ADMINISTERED AT 1629.
[2018-08-07 03:50] VITALS: BP 125/58
--- NOTE | 2018-08-07 07:15 | NUR ---
PT SITTING UP IN BED. ALERT AND ORIENTED. O2 AT 2L VIA NC. NEEDS NEW IV. RIGHT TOE/FOOT DRESSING C/D/I. LT AV FISTULA. HD M,W,F. PT TO HAVE SURGERY ON RIGHT FOOT TOMORROW. PT TO BE NPO AFTER MIDNIGHT TONIGHT. PT HAVING TREMORS IN HANDS MORE IN RIGHT HAND, PT STATES SHE HAS BEEN HAVING THESE SINCE TUESDAY NIGHT. PT HAS NO FURTHER NEEDS AT THIS TIME. BED LOW. CL IN REACH.
--- NOTE | 2018-08-07 08:00 | NUR ---
SPOKE WITH DR. MENJIVAR AND HE IS AWARE OF PT'S CALCIUM 6.5.
[2018-08-07 08:07] LABS: BILIRUBIN - TOTAL 0.28 mg/dL (0.2-1.3); CARBON DIOXIDE 30.6 mmol/L (21.0-32.0); CREATININE - SERUM 9.2 mg/dL (0.6-1.3); POTASSIUM - SERUM 3.6 mmol/L (3.5-5.1); PROTEIN - SERUM 7.1 g/dL (6.4-8.2); VANCOMYCIN - RANDOM 24.7 ug/mL (10.0-20.0)
[2018-08-07 08:13] LABS: CALCIUM 6.5 mg/dL (8.5-10.1); HEMATOCRIT 26.1 % (36.0-48.0); HEMOGLOBIN 8.2 g/dL (12-16); MCHC 31.4 g/dL (31.0-37.0); MCV 95.6 fL (80.0-100.0); MEAN PLATELET VOLUME 9.1 fL (7.4-10.4); PLATELET COUNT 301 10x3/uL (130-400); RBC 2.73 10x6/uL (4.00-5.40); RDW 14.6 % (11.5-14.5); WBC 10.6 10x3/uL (4.8-10.8)
[2018-08-07 08:28] VITALS: BP 118/65
[2018-08-07 08:54] LABS: EOSINOPHILS 7 % (0-7); LYMPHOCYTES 10 % (15-50); MONOCYTES 15 % (2-11); NEUTROPHILS 63 % (40-80); PLATELET ESTIMATE NORMAL
[2018-08-07 08:55] LABS: ANISOCYTOSIS OCC; ROULEAUX OCC
--- NOTE | 2018-08-07 10:38 | NUR ---
RIGHT WRIST 20G IV INSERTED ON X2 ATTEMPT BY QUEBRACHO TANNER WITH WATER GAS OPERATOR.
[2018-08-07 11:40] VITALS: BP 122/58
--- NOTE | 2018-08-07 12:41 | NUR ---
I have reviewed this patient and I concur with the Shift Assessment completed by the Licensed Practical Nurse today this shift.
--- NOTE | 2018-08-07 12:51 | NUR ---
DR. KIMBALL DOING DRESSING CHANGE ON PT'S RIGHT FOOT. NPO AFTER MIDNIGHT SIGN PLACED ON PT'S DOOR.
--- NOTE | 2018-08-07 12:52 | NUR ---
DR. RIVAS DOING DRESSING CHANGE ON PT'S RIGHT FOOT. NPO AFTER MIDNIGHT SIGN PLACED ON PT'S DOOR.
--- NOTE | 2018-08-07 13:00 | NUR ---
PT TAKEN TO DIALYSIS VIA BED.
--- NOTE | 2018-08-07 13:32 | NUR ---
NPO AFTER MIDNIGHT WITH TODAY'S DATE SIGN PLACED ON PT'S DOOR.
--- NOTE | 2018-08-07 16:58 | NUR ---
SPOKE [facility] THEY STATE THEY GOT OFF 3L.
[2018-08-07 20:05] VITALS: BP 124/52
[2018-08-08] VITALS (11 sets, daily range): BP systolic 118–155; BP diastolic 33–73
--- NOTE | 2018-08-08 00:32 | NUR ---
RESTING WITH EYES CLOSED, RESPERATIONS EVEN, NO S/S DISTRESS NOTED.
--- NOTE | 2018-08-08 06:11 | NUR ---
MACHINE SIZER AT BED SIDE, HIBICLENSE BATH GIVEN.
--- NOTE | 2018-08-08 07:15 | NUR ---
SX CALLED TO PREOP. NO PREOP MEDS IN. CALLED SX AND STATED TO HTEM THERE IS NO PREOP MEDS THEY STATED THEY WOULD GET IT PUT IN. I ALSO ASKED IF I COULD GIVE AM MEDS AND THEY STATED TO JUST GIVE PREOP MEDS AND BETA ANDRE.
--- NOTE | 2018-08-08 07:26 | NUR ---
PT PREOP'D FOR SX.
--- NOTE | 2018-08-08 07:45 | NUR ---
PT TAKEN FOR SURGERY VIA BED.
[2018-08-08 07:54] LABS: BASOPHILS 0.2 % (0-2); EOSINOPHILS 4.4 % (0-7); IMMATURE GRANULOCYTES 0.4 % (0-5); LYMPHOCYTES 21.9 % (15-50); MCH 29.9 pg (26.0-34.0); MCV 96.3 fL (80.0-100.0); NEUTROPHILS 62.1 % (40-80); PLATELET COUNT 305 10x3/uL (130-400); RBC 3.01 10x6/uL (4.00-5.40); RDW 14.5 % (11.5-14.5); WBC 9.9 10x3/uL (4.8-10.8)
[2018-08-08 07:59] LABS: % SATURATION 39 % (15-55); IRON 54 ug/dl (35-150); TOTAL IRON BIND CAPACITY 138 ug/dl (260-445); UNSAT IRON BIND CAPACITY 84 ug/dl (150-375)
[2018-08-08 08:15] LABS: ALBUMIN 2.2 g/dL (3.4-5.0); BILIRUBIN - TOTAL 0.38 mg/dL (0.2-1.3); CALCIUM 7.5 mg/dL (8.5-10.1); CARBON DIOXIDE 30.7 mmol/L (21.0-32.0); CREATININE - SERUM 7.4 mg/dL (0.6-1.3); POTASSIUM - SERUM 3.7 mmol/L (3.5-5.1); PROTEIN - SERUM 7.8 g/dL (6.4-8.2)
--- NOTE | 2018-08-08 10:00 | NUR ---
PT RETURNED FROM SURGERY ALERT AND ORIENTED. PT STATES SHE HAS NO PAIN. SURGERY RN GAVE BEDSIDE REPORT AND STATED PT RECEIVED A RIGHT POPLITEAL BLOCK. VS STABLE. O2 AT 2L VIA NC. RIGHT WRIST 20G IV SL. WILL CONTINUE TO MONITOR. BED LOW. CL IN REACH.
--- NOTE | 2018-08-08 11:03 | NUR ---
I have reviewed this patient and I concur with the Shift Assessment completed by the Licensed Practical Nurse today this shift.
--- NOTE | 2018-08-08 11:09 | NUR ---
WAITING ON PHARMACY TO BRING CALCIUM GLUCONATE.
--- NOTE | 2018-08-08 13:58 | NUR ---
Nutrition Follow Up: Pt was asleep at the time of RD visit. Interview deferred. Chart reviewed. Pt is s/p closure of foot. Diet: Renal ADA; Nepro TID PO Intake: 81% meal avg BM: 08/07/18 Meds and labs reviewed Rec continue current diet, supplement regimen. RD following.
--- NOTE | 2018-08-08 17:24 | NUR ---
PT'S BS DECREASING AND IS NOW 367.
--- NOTE | 2018-08-08 17:34 | NUR ---
RIGHT FOOT DRESSING C/D/I. PT NOT C/O ANY PAIN.
--- NOTE | 2018-08-08 20:01 | NUR ---
PT RESTING IN BED. FIXED SIDE RAILS PER PT REQUEST. 2 RAILS UP TOTAL. PT HAS BEDLOW AND CALL LIGHT IN REACH. NAME AND DATE PLACED ON BOARD. PT WILL CALL FOR ASSIST WHEN NEEDED. WILL CPOC
--- NOTE | 2018-08-08 22:28 | NUR ---
FSBS IS 267 6 UNITS GIVEN ORDERED. PT WILL CALL FOR ASSIST WHEN NEEDED. WILL CPOC
--- NOTE | 2018-08-09 01:53 | NUR ---
PT ASLEEP. RESP EVEN AND UNLABORED. BEDLOW AND CALL LIGHT IN REACH. WILL CPOC
[2018-08-09 03:55] VITALS: BP 119/62
[2018-08-09 06:52] LABS: BASOPHILS 0.3 % (0-2); EOSINOPHILS 1.4 % (0-7); HEMATOCRIT 26.8 % (36.0-48.0); HEMOGLOBIN 8.4 g/dL (12-16); IMMATURE GRANULOCYTES 0.2 % (0-5); LYMPHOCYTES 19.3 % (15-50); MCH 29.9 pg (26.0-34.0); MCHC 31.3 g/dL (31.0-37.0); MCV 95.4 fL (80.0-100.0); MEAN PLATELET VOLUME 9.2 fL (7.4-10.4); MONOCYTES 9.2 % (2-11); NEUTROPHILS 69.6 % (40-80); PLATELET COUNT 311 10x3/uL (130-400); RBC 2.81 10x6/uL (4.00-5.40); RDW 14.3 % (11.5-14.5); WBC 10.3 10x3/uL (4.8-10.8)
[2018-08-09 07:17] LABS: ALBUMIN 2.2 g/dL (3.4-5.0); ANION GAP 14.8 mmol/L (8-16); BILIRUBIN - TOTAL 0.22 mg/dL (0.2-1.3); CALCIUM 7.4 mg/dL (8.5-10.1); CARBON DIOXIDE 28.4 mmol/L (21.0-32.0); CREATININE - SERUM 8.7 mg/dL (0.6-1.3); PHOSPHOROUS 4.1 mg/dL (2.5-4.9); POTASSIUM - SERUM 4.2 mmol/L (3.5-5.1); PROTEIN - SERUM 7.3 g/dL (6.4-8.2)
--- NOTE | 2018-08-09 07:19 | NUR ---
PT FSBS IS 159 PT IS SLEEPY AND FALLING ASLEEP. AGREES TO NO INSULIN. PT BEDLOW AND CALL LIGHT IN REACH. WILL CPOC
--- NOTE | 2018-08-09 08:15 | NUR ---
PATIENT IS STABLE AND VSS. PATIENT TO DIALYSIS VIA BED AND HOSPITAL PERSONNEL.
[2018-08-09 10:23] VITALS: BP 123/63
--- NOTE | 2018-08-09 12:30 | NUR ---
PATIENT RETURNED FROM DIALYSIS VIA BED AND HOSPITAL PERSONNEL. PATIENT IS STABLE AND VSS. PATIENT DENIES ANY NEEDS OR PAIN. WILL CONTINUE TO MONITOR. SR UP X 2 BED IN LOW POSTION AND CALL LIGHT IN REACH.
[2018-08-09 16:59] VITALS: BP 134/65
--- NOTE | 2018-08-09 17:21 | NUR ---
REPORT RECIEVED FROM LABORER GENERAL. PATIENT LAYING IN BED ON RT SIDE WITH EYES CLOSED AND BREATHING EVENLY. VSS. WILL CONTINUE WITH PLAN OF CARE. SR UP X 2 BED IN LOW POSITION AND CALL LIGHT IN REACH.
--- NOTE | 2018-08-09 17:25 | NUR ---
PATIENT SITTING UP IN BED EATING SUPPER AND WATCHING TV. PATIENT DENIESA [place] NEEDS OR PAIN. WILL CONTINUE TO MONITOR. SR UP X 2 BED IN LOW POSITION AND CALL LIGHT INREACH.
--- NOTE | 2018-08-09 19:45 | NUR ---
PT RESTING IN BED EATING CHIPS. STATES SHE FEELS BETTER NOW THAT THE MEDICATION FROM SURG IS OUT OF HER SYSTEM. PT FSBS IS 235, STOPPED EATING THE JULITA CHIPS. PT HAS NO S/S OF DISTRESS. BEDLOW AND CALL LIGHT IN REACH. NAME AND DATE PLACED ON BOARD. PT WILL CALL FOR ASSIST WHEN NEEDED. FOOT KWAME CDI. WILL CPOC
[2018-08-09 20:32] VITALS: BP 139/69
--- NOTE | 2018-08-09 21:41 | NUR ---
PT FSBS IS 235 4 UNITS GIVEN ORDERED. SNACK GIVEN PT DENIES ANY NEEDS. NO S/S OF DISTRESS. WILL CPOC
[2018-08-10 00:04] VITALS: BP 136/70
--- NOTE | 2018-08-10 01:54 | NUR ---
PT CALLED TO ADJUST AIR CONTROLS IN ROOM. ASSISTED PT WITH REPOSITIONING. PT IS AAO. DENIES ANY OTHER NEEDS. NO S/S OF DISTRESS. BEDLOW AND CALL LIGHT IN REACH. WILL CPOC
[2018-08-10 05:33] LABS: BASOPHILS 0.4 % (0-2); EOSINOPHILS 2.5 % (0-7); HEMATOCRIT 27.9 % (36.0-48.0); HEMOGLOBIN 8.7 g/dL (12-16); IMMATURE GRANULOCYTES 0.2 % (0-5); LYMPHOCYTES 24.9 % (15-50); MCH 29.9 pg (26.0-34.0); MCHC 31.2 g/dL (31.0-37.0); MCV 95.9 fL (80.0-100.0); MEAN PLATELET VOLUME 9.1 fL (7.4-10.4); MONOCYTES 9.6 % (2-11); NEUTROPHILS 62.4 % (40-80); PLATELET COUNT 334 10x3/uL (130-400); RBC 2.91 10x6/uL (4.00-5.40); RDW 14.4 % (11.5-14.5); WBC 8.3 10x3/uL (4.8-10.8)
[2018-08-10 06:03] LABS: ALBUMIN 2.3 g/dL (3.4-5.0); ANION GAP 14.8 mmol/L (8-16); BILIRUBIN - TOTAL 0.24 mg/dL (0.2-1.3); CALCIUM 7.6 mg/dL (8.5-10.1); CARBON DIOXIDE 28.4 mmol/L (21.0-32.0); CREATININE - SERUM 6.9 mg/dL (0.6-1.3); POTASSIUM - SERUM 4.2 mmol/L (3.5-5.1); PROTEIN - SERUM 7.8 g/dL (6.4-8.2)
[2018-08-10 06:04] VITALS: BP 142/71
--- NOTE | 2018-08-10 06:29 | NUR ---
PT GLUCOSE THIS MORNING IS 146 NO INSULIN NEEDED PER SLIDING SCALE. DR POOL IN ROOM ASSESSING PT. PT DENIES ANY NEEDS. NO S/S OF DISTRESS. WILL CPOC
[2018-08-10 07:53] VITALS: BP 128/69
[2018-08-10] MEDS ORDERED: Levaquin PO (09:33)
[2018-08-10] MEDS ORDERED: GABAPENTIN100 MG PO (09:34)
[2018-08-10] MEDS ORDERED: PHOSLO667 MG PO (09:35)
[2018-08-10] MEDS ORDERED: NEPHRO-VITE RX1 TAB PO (09:35)
[2018-08-10] MEDS ORDERED: LEVOFLOXACIN500 MG PO (09:37)
[2018-08-10 11:18] VITALS: BP 126/65
--- NOTE | 2018-08-10 12:21 | MORECARE ---
CASE MANAGEMENT DISCHARGE SUMMARY PATIENT: DEON MILLER UNIT: [id number] ADM DATE: 07/31/18 AGE: 63 : 59 SEX: F ROOM/BED: D.7460 AUTHOR: HUBER THOMPSON PHYSICIAN: REFERRING PHYSICIAN: AYO MAURICIO MD DATE OF SERVICE: 08/10/18 Discharge Plan Patient Name: DEON MILLER Facility: [facility]:[place] : 1955 Planned Disposition: Home with Home Health Anticipated Discharge Date: 08/10/18 Discharge Date: Expected LOS: 10 Initial Reviewer: [id number] Initial Review Date: 07/31/2018 Generated: 08/10/18 1:21 pm Comments DCP- Discharge Planning Updated by [id number]: Klever Chavez on 08/04/18 2:[address] Patient Name: DEON MILLER Admission Status: ER Accout number: [id number] Admission Date: 07-31-2018 : 1955 Admission Diagnosis:TYPE 2 DIABETES MELLITUS WITH FOOT ULCER Attending: Ayo Mauricio Current LOS: 4 Anticipated DC Date: Planned Disposition: Home Primary Insurance: [employer] POS Discharge Planning Comments: CM MET WITH PT AND SPOUSE IN ROOM TO DISCUSS DISCHARGE PLANNING AND NEEDS. DEON MILLER provided verbal consent to discuss current and ongoing needs with/in the presence of: SPOUSE, AVRIL. PT REPORTS LIVING AT HOME INDEPENDENTLY WITH HER SPOUSE. PT HAS NO MEDICAL EQUIPMENT AND NO OUTSIDE SERVICES ASSISTING IN THE HOME. CM DISCUSSED AVAILABILITY OF HOME HEALTH, REHAB SERVICES AND MEDICAL EQUIPMENT. PT HAS UNKNOWN DISCHARGE NEEDS, IS WAITING ON THE DOCTOR TO DETERMINE WEIGHT BEARING FOR HER FOOT AND IF SHE WILL NEED A WHEELCHAIR OR WALKER. PT REPORTS HER SPOUSE WILL PICK HER UP FOR DISCHARGE HOME. PT TO DISCHARGE HOME WITH SPOUSE, CM TO ASSIST WITH MEDICAL EQUIPMENT IF ANY IS NEEDED / ORDERED. Personal Secretary: Klever Chavez DCPIA - Discharge Planning Initial Assessment Updated by [id number]: Klever Chavez on 08/04/18 4:51 pm * Is the patient Alert and Oriented? Yes * How many steps to enter\exit or inside your home? * PCP MISTY HYDE * Pharmacy [facility] IN [place] * Preadmission Environment Home with Family * ADLs Independent * Equipment None * Other Equipment NO MEDICAL EQUIPMENT PROVIDER PREFERENCE * List name and contact numbers for known caregivers / representatives who currently or will assist patient after discharge: AVRLI MILLER, SPOUSE, * Verbal permission to speak to the caregivers and representatives has been obtained from the patient. Yes * Community resources currently utilized Other * Please name any agencies selected above. [facility], [place], MWF, [facility], [place] * Additional services required to return to the preadmission environment? No * Can the patient safely return to the preadmission environment? Yes * Has this patient been hospitalized within the prior 30 days at any hospital? No External Providers External Provider: [facility] Next Contact Date: 08/10/2018 Service Request Date: Service Type: Resolution: Reviewer: Comments: Coverage Notice Reviewer: [id number] Elvi Chavez Notice Issued Date-Time: 08/10/2018 11:55 Notice Type: Patient Choice Letter Notice Delivered To: Patient Relationship to Patient: Floor Service Worker Spring Name: Delivery Method: HAND - Hand Delivered Venus Days: Prior Verbal Notification: Recipient Understood Notice: Yes Recipient Signature: Yes Med Rec Note Co-signed by Attending: Coverage Notice Comment: Last DP export: 08/04/18 3:01 pm Patient Name: DEON MILLER Page [id number] at 1221 All edits/amendments must be made on the electronic document DICTATION DATE: 08/10/18 1220 ENTERPRISE SYSTEMS ENGINEER: JUWAN 08/10/18 1220 RPT#: [id number] DC DATE: STATUS: ADM IN [facility] [address] [place] [address] END OF REPORT
--- NOTE | 2018-08-10 12:30 | MORECARE ---
CASE MANAGEMENT DISCHARGE SUMMARY PATIENT: DEON MILLER UNIT: [id number] ADM DATE: 07/31/18 AGE: 63 : 59 SEX: F ROOM/BED: D.9125 AUTHOR: HUBER THOMPSON PHYSICIAN: REFERRING PHYSICIAN: AYO MAURICIO MD DATE OF SERVICE: 08/10/18 Discharge Plan Patient Name: DEON MILLER Facility: [facility]:[place] : 1955 Planned Disposition: Home with Home Health Anticipated Discharge Date: 08/10/18 Discharge Date: Expected LOS: 10 Initial Reviewer: [id number] Initial Review Date: 07/31/2018 Generated: 08/10/18 1:30 pm Comments DCP- Discharge Planning Updated by [email or web address]: Klever Chavez on 08/10/18 11:[address] Patient Name: DEON MILLER Encounter No: [id number] : 1955 Primary Insurance: [employer] POS Anticipated DC Date: 08-10-2018 Planned Disposition: Home with Home Health External Planned Provider: [employer] [facility] [place] OFFICE DCP follow-up note: CM RECEIVED HOME HEALTH ORDER, MET WITH PT IN ROOM TO DISCUSS DISCHARGE NEEDS AND PLANNING. CM PROVIDED LISTING HOME HEALTH PROVIDERS. PT CALLED HER SPOUSE WHO WAS IN AGREEMENT WITH HOME HEALTH, NO PREFERENCE ON AGENCY. PT SIGNED CHOICE LETTER FOR ANY HOME HEALTH AGENCY. CM CALLED [facility] OFFICE AT [phone], SPOKE TO FAREED WHO TOOK REFERRAL INFORMATION AND WILL CHECK WITH PT'S INSURANCE TO ENSURE AND VERIFY COVERAGE. CM FAXED REFERRAL AND DISCHARGE INFORMATION TO [employer] AT [phone]. CM NOTIFIED PT WHO REPORTS HER SPOUSE WILL BE HERE TO PICK HER UP SHORTLY, SHE WILL LOOK AT [employer] OR OTHER RETAIL ESTABLISHMENT FOR CRUTCHES. GPS NAVIGATION INSTALLER NURSE NOTIFIED. RACHAEL BLACKMON DCP- Discharge Planning Updated by [id number]: Klever Chavez on 08/04/18 2:[address] Patient Name: DEON MILLER Admission Status: ER Accout number: [id number] Admission Date: 07-31-2018 : 01-23-1956 Admission Diagnosis:TYPE 2 DIABETES MELLITUS WITH FOOT ULCER Attending: Ayo Mauricio Current LOS: 4 Anticipated DC Date: Planned Disposition: Home Primary Insurance: [employer] [facility] POS Discharge Planning Comments: CM MET WITH PT AND SPOUSE IN ROOM TO DISCUSS DISCHARGE PLANNING AND NEEDS. DEON Bartholomew PAUL provided verbal consent to discuss current and ongoing needs with/in the presence of: SPOUSE, AVRIL. PT REPORTS LIVING AT HOME INDEPENDENTLY WITH HER SPOUSE. PT HAS NO MEDICAL EQUIPMENT AND NO OUTSIDE SERVICES ASSISTING IN THE HOME. CM DISCUSSED AVAILABILITY OF HOME HEALTH, REHAB SERVICES AND MEDICAL EQUIPMENT. PT HAS UNKNOWN DISCHARGE NEEDS, IS WAITING ON THE DOCTOR TO DETERMINE WEIGHT BEARING FOR HER FOOT AND IF SHE WILL NEED A WHEELCHAIR OR WALKER. PT REPORTS HER SPOUSE WILL PICK HER UP FOR DISCHARGE HOME. PT TO DISCHARGE HOME WITH SPOUSE, CM TO ASSIST WITH MEDICAL EQUIPMENT IF ANY IS NEEDED / ORDERED. Event Manager: Klever Chavez DCPIA - Discharge Planning Initial Assessment Updated by [id number]: Klever Chavez on 08/04/18 4:51 pm * Is the patient Alert and Oriented? Yes * How many steps to enter\exit or inside your home? * PCP MISTY HYDE * Pharmacy [facility] IN [place] * Preadmission Environment Home with Family * ADLs Independent * Equipment None * Other Equipment NO MEDICAL EQUIPMENT PROVIDER PREFERENCE * List name and contact numbers for known caregivers / representatives who currently or will assist patient after discharge: AVRIL MILLER, SPOUSE, * Verbal permission to speak to the caregivers and representatives has been obtained from the patient. Yes * Community resources currently utilized Other * Please name any agencies selected above. [facility], [place], [facility], [address], [place] * Additional services required to return to the preadmission environment? No * Can the patient safely return to the preadmission environment? Yes * Has this patient been hospitalized within the prior 30 days at any hospital? No Coverage Notice Reviewer: [id number] - Klever Chavez Notice Issued Date-Time: 08/10/2018 11:55 Notice Type: Patient Choice Letter Notice Delivered To: Patient Relationship to Patient: Voicer Name: Delivery Method: HAND - Hand Delivered Venus Days: Prior Verbal Notification: Recipient Understood Notice: Yes Recipient Signature: Yes Med Rec Note Co-signed by Attending: Coverage Notice Comment: Last DP export: 08/10/18 11:21 a Patient Name: DEON MILLER Page [id number] at 1230 All edits/amendments must be made on the electronic document DICTATION DATE: 08/10/181228 TIN TIE MACHINE OPERATOR AUTOMATIC: JUWAN 08/10/181228 RPT#: [id number] DC DATE: STATUS: ADM IN [facility] [address] [place] [address] END OF REPORT
--- NOTE | 2018-08-10 15:38 | MORECARE ---
CASE MANAGEMENT DISCHARGE SUMMARY PATIENT: DEON MILLER UNIT: [id number] ADM DATE: 07/31/18 AGE: 63 : 59 SEX: F ROOM/BED: D.4450 AUTHOR: HUBER THOMPSON PHYSICIAN: REFERRING PHYSICIAN: AYO MAURICIO MD DATE OF SERVICE: 08/10/18 Discharge Plan Patient Name: DEON MILLER Facility: [facility]:[place] : 1955 Planned Disposition: Home with Home Health Anticipated Discharge Date: 08/10/18 Discharge Date: 08/10/2018 Expected LOS: 10 Initial Reviewer: GEN Initial Review Date: 07/31/2018 Generated: 08/10/18 4:37 pm Comments DCP- Discharge Planning Updated by [id number]: Klever Leung on 08/10/18 2:[address] Patient Name: DEON MILLER Encounter No: [id number] : 1955 Primary Insurance: [employer] POS Anticipated DC Date: 08-10-2018 Planned Disposition: Home with Home Health External Planned Provider: [facility] [place] OFFICE DCP follow-up note: CM RECEIVED HOME HEALTH ORDER, MET WITH PT IN ROOM TO DISCUSS DISCHARGE NEEDS AND PLANNING. CM PROVIDED LISTING HOME HEALTH PROVIDERS. PT CALLED HER SPOUSE WHO WAS IN AGREEMENT WITH HOME HEALTH, NO PREFERENCE ON AGENCY. PT SIGNED CHOICE LETTER FOR ANY HOME HEALTH AGENCY. CM CALLED [facility] [place] OFFICE AT [phone], SPOKE TO FAREED WHO TOOK REFERRAL INFORMATION AND WILL CHECK WITH PT'S INSURANCE TO ENSURE AND VERIFY COVERAGE. CM FAXED REFERRAL AND DISCHARGE INFORMATION TO [facility] AT [phone]. CM NOTIFIED PT WHO REPORTS HER SPOUSE WILL BE HERE TO PICK HER UP SHORTLY, SHE WILL LOOK AT [employer] OR OTHER RETAIL ESTABLISHMENT FOR CRUTCHES. STEEL UNLOADER NURSE NOTIFIED. KLEVER LEUNG, CASE MANAGEMENT Appended by Klever Leung on 08/10/2018 15:31 CDT: CM RECEIVED CALL FROM QUINCY OF [facility] VERIFYING THEY WILL ADMIT PT FOR HOME HEALTH TOMORROW, 08-11-18. RACHAEL BLACKMON DCP- Discharge Planning Updated by [id number]: Klever Leung on 08/04/18 2:[address] Patient Name: DEON MILLER Admission Status: ER Accout number: [id number] Admission Date: 07-31-2018 : 1955 Admission Diagnosis:TYPE 2 DIABETES MELLITUS WITH FOOT ULCER Attending: Ayo Mauricio Current LOS: 4 Anticipated DC Date: Planned Disposition: Home Primary Insurance: [facility] POS Discharge Planning Comments: CM MET WITH PT AND SPOUSE IN ROOM TO DISCUSS DISCHARGE PLANNING AND NEEDS. DEON MILLER provided verbal consent to discuss current and ongoing needs with/in the presence of: SPOUSE, AVRIL. PT REPORTS LIVING AT HOME INDEPENDENTLY WITH HER SPOUSE. PT HAS NO MEDICAL EQUIPMENT AND NO OUTSIDE SERVICES ASSISTING IN THE HOME. CM DISCUSSED AVAILABILITY OF HOME HEALTH, REHAB SERVICES AND MEDICAL EQUIPMENT. PT HAS UNKNOWN DISCHARGE NEEDS, IS WAITING ON THE DOCTOR TO DETERMINE WEIGHT BEARING FOR HER FOOT AND IF SHE WILL NEED A WHEELCHAIR OR WALKER. PT REPORTS HER SPOUSE WILL PICK HER UP FOR DISCHARGE HOME. PT TO DISCHARGE HOME WITH SPOUSE, CM TO ASSIST WITH MEDICAL EQUIPMENT IF ANY IS NEEDED / ORDERED. Outdoor Landscape Architect: Klever Leung DCPIA - Discharge Planning Initial Assessment Updated by [id number]: Klever Leung on 08/04/18 4:51 pm * Is the patient Alert and Oriented? Yes * How many steps to enter\exit or inside your home? * PCP MISTY HYDE * Pharmacy [facility] IN [place] * Preadmission Environment Home with Family * ADLs Independent * Equipment None * Other Equipment NO MEDICAL EQUIPMENT PROVIDER PREFERENCE * List name and contact numbers for known caregivers / representatives who currently or will assist patient after discharge: AVRIL MILLER, SPOUSE, * Verbal permission to speak to the caregivers and representatives has been obtained from the patient. Yes * Community resources currently utilized Other * Please name any agencies selected above. [facility], [place], MWF, [address], [place] * Additional services required to return to the preadmission environment? No * Can the patient safely return to the preadmission environment? Yes * Has this patient been hospitalized within the prior 30 days at any hospital? No Coverage Notice Reviewer: [id number] - Klever Leung Notice Issued Date-Time: 08/10/2018 11:55 Notice Type: Patient Choice Letter Notice Delivered To: Patient Relationship to Patient: Medical Office Supervisor Name: Delivery Method: HAND - Hand Delivered Venus Days: Prior Verbal Notification: Recipient Understood Notice: Yes Recipient Signature: Yes Med Rec Note Co-signed by Attending: Coverage Notice Comment: Last DP export: 08/10/18 11:30 a Patient Name: DEON MILLER Page [id number] at 1538 All edits/amendments must be made on the electronic document DICTATION DATE: 08/10/181536 EMBEDDED LINUX ENGINEER: JUWAN 08/10/181536 RPT#: [id number] DC DATE:08/10/18 STATUS: DIS IN [facility] [address] [place] [address] END OF REPORT
--- NOTE | 2018-08-11 18:00 | NUR ---
Dialysis Coordinator: K[facility] MWF @ 6:30am. RUTH BRAR.
== END 2018-08-10 13:39 | disposition home health service (06) | DRG 853 ==
LOC: D.ER 16:10 → D.M2 20:26
PROVIDERS: Emergency Medicine; Family Medicine; Podiatrist Foot & Ankle Surgery; ADMIT Internal Medicine Nephrology; ATTEND Internal Medicine Nephrology
PROC: 0JBQ0ZZ Excision of Right Foot Subcutaneous Tissue and Fascia, Open Approach (ICD-10-PCS; principal; 2018-08-01)
PROC: 0J9Q0ZZ Drainage of Right Foot Subcutaneous Tissue and Fascia, Open Approach (ICD-10-PCS; 2018-08-04)
PROC: 0Y6P0Z0 Detachment at Right 1st Toe, Complete, Open Approach (ICD-10-PCS; 2018-08-04 12:30)
PROC: 0JQQ0ZZ Repair Right Foot Subcutaneous Tissue and Fascia, Open Approach (ICD-10-PCS; 2018-08-08)
PROC: 0HBMXZZ Excision of Right Foot Skin, External Approach (ICD-10-PCS; 2018-08-08)
DX: A41.9 Sepsis, unspecified organism (principal); N18.6 End stage renal disease; I12.0 Hypertensive chronic kidney disease with stage 5 chronic kidney disease or end stage renal disease; L02.611 Cutaneous abscess of right foot; M86.8X7 Other osteomyelitis, ankle and foot; E11.621 Type 2 diabetes mellitus with foot ulcer; E11.22 Type 2 diabetes mellitus with diabetic chronic kidney disease; E66.9 Obesity, unspecified; Z68.32 Body mass index [BMI] 32.0-32.9, adult; E11.40 Type 2 diabetes mellitus with diabetic neuropathy, unspecified; E11.69 Type 2 diabetes mellitus with other specified complication; G25.3 Myoclonus; E83.51 Hypocalcemia; Z86.73 Personal history of transient ischemic attack (TIA), and cerebral infarction without residual deficits

== ENCOUNTER → 2018-09-06 17:57 | Outpatient (CLI) | payer OTHER, MEDICARE ==
[2018-08-01 16:30] VITALS: BMI 36.6
[~2018-09-06 17:57] MED LIST changes: +GABAPENTIN100 MG PO; +LEVOFLOXACIN500 MG PO; +Levaquin PO; +NEPHRO-VITE RX1 TAB PO; +PHOSLO667 MG PO
== END | disposition home or self-care (01) ==
LOC: D.LABREF 17:57
PROVIDERS: ATTEND Podiatrist Foot & Ankle Surgery
DX: L03.115 Cellulitis of right lower limb (principal)

== ENCOUNTER → 2018-10-18 18:17 | Outpatient (CLI) | payer OTHER, MEDICARE ==
[2018-08-01 16:30] VITALS: BMI 36.6
== END | disposition home or self-care (01) ==
LOC: D.LABREF 18:17
PROVIDERS: ATTEND Podiatrist Foot & Ankle Surgery
DX: L03.115 Cellulitis of right lower limb (principal)

== ENCOUNTER 2018-11-06 13:42 | Inpatient (IN) | payer OTHER, MEDICARE ==
[~2018-11-06] VITALS: Ht 160 cm; Wt 84.4 kg
[2018-11-06 14:50] LABS: BASOPHILS 0.2 % (0-2); EOSINOPHILS 0.2 % (0-7); HEMATOCRIT 32.1 % (36.0-48.0); IMMATURE GRANULOCYTES 0.5 % (0-5); LYMPHOCYTES 6.1 % (15-50); MCH 28.1 pg (26.0-34.0); MCHC 31.2 g/dL (31.0-37.0); MCV 90.2 fL (80.0-100.0); MEAN PLATELET VOLUME 9.3 fL (7.4-10.4); MONOCYTES 6.1 % (2-11); NEUTROPHILS 86.9 % (40-80); PLATELET COUNT 329 10x3/uL (130-400); RBC 3.56 10x6/uL (4.00-5.40); RDW 16.1 % (11.5-14.5); WBC 15.3 10x3/uL (4.8-10.8)
[2018-11-06 15:08] LABS: APTT 33.2 SECONDS (22.8-39.4); INR 1.3 (0.85-1.17); PROTIME 15.7 SECONDS (11.6-15.0)
[2018-11-06 15:16] LABS: ALBUMIN 2.9 g/dL (3.4-5.0); ALKALINE PHOSPHATASE 112 U/L (46-116); ALT (SGPT) 10 U/L (10-68); BILIRUBIN - TOTAL 0.34 mg/dL (0.2-1.3); CALC OSMOLALITY 281 mosm/kg (275-300); CALCIUM 9.2 mg/dL (8.5-10.1); CARBON DIOXIDE 29.3 mmol/L (21.0-32.0); CHLORIDE - SERUM 97 mmol/L (98-107); CREATININE - SERUM 4.6 mg/dL (0.6-1.3); GLUCOSE 190 mg/dL (74-106); POTASSIUM - SERUM 4.3 mmol/L (3.5-5.1); PROTEIN - SERUM 9.4 g/dL (6.4-8.2); SODIUM 136 mmol/L (136-145); UREA NITROGEN 27 mg/dL (7-18); eGFR NON AFRICAN AMERICAN 10 mL/min (90-120)
[2018-11-06 15:28] LABS: CKMB 0.1 U/L (0.0-3.6); CREATINE KINASE 50 UL (21-215); TROPONIN-I < 0.017 ng/mL (0.000-0.060)
[2018-11-06 19:00] VITALS: BP 124/60
[2018-11-06 21:47] VITALS: BP 119/56; BMI 33.0
[2018-11-07 04:00] VITALS: BP 119/63
--- NOTE | 2018-11-07 04:14 | NUR ---
PT RESTING IN BED. ALERT AND ORIENTED. NO SIGNS OF DISTRESS. BREATHING EVEN AND UNLABORED. PT STATES NO PROBLEMS AT THIS TIME. CALL LIGHT IN REACH. ODESSA ALARM ON. BED LOWERED AND LOCKED. WILL CONTINUE PLAN OF CARE.
[2018-11-07 05:28] LABS: BASOPHILS 0.2 % (0-2); EOSINOPHILS 2.7 % (0-7); HEMATOCRIT 28.7 % (36.0-48.0); HEMOGLOBIN 8.6 g/dL (12-16); IMMATURE GRANULOCYTES 0.7 % (0-5); LYMPHOCYTES 15.7 % (15-50); MCH 27.2 pg (26.0-34.0); MCV 90.8 fL (80.0-100.0); MEAN PLATELET VOLUME 9.1 fL (7.4-10.4); MONOCYTES 10.2 % (2-11); NEUTROPHILS 70.5 % (40-80); PLATELET COUNT 327 10x3/uL (130-400); RBC 3.16 10x6/uL (4.00-5.40); RDW 16.3 % (11.5-14.5); WBC 12.3 10x3/uL (4.8-10.8)
[2018-11-07 05:52] LABS: ANION GAP 15.1 mmol/L (8-16); CALCIUM 8.3 mg/dL (8.5-10.1); CREATININE - SERUM 5.6 mg/dL (0.6-1.3); POTASSIUM - SERUM 4.1 mmol/L (3.5-5.1); VANCOMYCIN - RANDOM 32.3 ug/mL (10.0-20.0)
[2018-11-07 08:16] VITALS: BP 118/62
[2018-11-07 12:43] VITALS: BP 111/52
[2018-11-07 14:44] VITALS: BMI 32.9
[2018-11-07 16:29] VITALS: BP 121/60
--- NOTE | 2018-11-07 18:02 | NUR ---
I have reviewed this patient and I concur with the Shift Assessment completed by the Licensed Practical Nurse today this shift.
[2018-11-07 19:03] VITALS: Ht 160 cm; Wt 84.4 kg
[2018-11-07 20:00] VITALS: BP 123/68
[2018-11-08] VITALS: BP 101/50
[2018-11-08 04:00] VITALS: BP 99/49
[2018-11-08 09:44] VITALS: BP 121/62
[2018-11-08 10:50] LABS: BASOPHILS 0.3 % (0-2); EOSINOPHILS 5.8 % (0-7); HEMOGLOBIN 8.7 g/dL (12-16); IMMATURE GRANULOCYTES 0.3 % (0-5); LYMPHOCYTES 19.1 % (15-50); MCH 27.3 pg (26.0-34.0); MCV 90.9 fL (80.0-100.0); MEAN PLATELET VOLUME 9.1 fL (7.4-10.4); MONOCYTES 9.3 % (2-11); NEUTROPHILS 65.2 % (40-80); PLATELET COUNT 339 10x3/uL (130-400); RBC 3.19 10x6/uL (4.00-5.40); RDW 16.5 % (11.5-14.5); WBC 9.8 10x3/uL (4.8-10.8)
[2018-11-08 10:54] LABS: ANION GAP 14.8 mmol/L (8-16); CALCIUM 8.4 mg/dL (8.5-10.1); CARBON DIOXIDE 28.6 mmol/L (21.0-32.0); POTASSIUM - SERUM 4.4 mmol/L (3.5-5.1)
[2018-11-08 10:55] LABS: CREATININE - SERUM 7.3 mg/dL (0.6-1.3)
[2018-11-08 12:00] VITALS: BP 119/59
--- NOTE | 2018-11-08 13:22 | NUR ---
PT IN DIALYSIS.
--- NOTE | 2018-11-08 17:03 | MORECARE ---
CASE MANAGEMENT DISCHARGE SUMMARY PATIENT: DEON MILLER UNIT: [id number] ADM DATE: 11/06/18 AGE: 63 : 59 SEX: F ROOM/BED: D.2234 AUTHOR: HUBER THOMPSON PHYSICIAN: REFERRING PHYSICIAN: PARDEEP ESTRADA MD DATE OF SERVICE: 11/08/18 Discharge Plan Patient Name: DEON MILLER Facility: [facility]:[place] : 1955 Planned Disposition: Home with Home Health Anticipated Discharge Date: Discharge Date: Expected LOS: Initial Reviewer: [email or web address] Initial Review Date: 11/08/2018 Generated: 11/08/18 6:02 pm Patient Name: DEON MILLER Page [id number] at 1703 All edits/amendments must be made on the electronic document DICTATION DATE: 11/08/181701 SHEET WRITER: JUWAN 11/08/181701 RPT#: [id number] DC DATE: STATUS: ADM IN [facility] [address] [place] [address] END OF REPORT
--- NOTE | 2018-11-08 17:09 | MORECARE ---
CASE MANAGEMENT DISCHARGE SUMMARY PATIENT: DEON MASTERS UNIT: [id number] ADM DATE: 11/06/18 AGE: 63 : 59 SEX: F ROOM/BED: D.2234 AUTHOR: JAY,DOC PHYSICIAN: REFERRING PHYSICIAN: PARDEEP ESTRADA MD DATE OF SERVICE: 11/08/18 Discharge Plan Patient Name: DEON MASTERS Facility: [facility]:[place] : 1955 Planned Disposition: Home with Home Health Anticipated Discharge Date: Discharge Date: Expected LOS: Initial Reviewer: [email or web address] Initial Review Date: 11/08/2018 Generated: 11/08/18 6:09 pm Comments DCP- Discharge Planning Updated by [id number]: Alexandra Pearson on 11/08/18 4:[address] Patient Name: DEON MASTERS Admission Status: ER Accout number: [id number] Admission Date: 11-06-2018 : 1955 Admission Diagnosis: Attending: PARDEEP ESTARDA Current LOS: 2 Anticipated DC Date: Planned Disposition: Home with Home Health Primary Insurance: [employer] POS Discharge Planning Comments: CM met with patient to complete initial dc planning assessment. CM educated patient on the CM role and verbal consent given by patient to complete assessment. Patient lives at home with her spouse. At discharge patient plans to return and feels this is a safe discharge. States her will take her home on discharge. CM discussed availability of home health, rehab services, and medical equipment. Patient states she has had [facility] in [place] before and would like to use the same agency again. ZULEYMA signed for [facility] in [place], I will call in am when they are open. CM will continue to follow and will assist as needed with dc plans/needs. [facility] in [place] - P [phone] F [phone] Metal Pickling Equipment Operator: Alexandra Pearson DCPIA - Discharge Planning Initial Assessment Updated by [id number]: Alexandra Pearson on 11/08/18 5:03 pm * Is the patient Alert and Oriented? Yes * How many steps to enter\exit or inside your home? 07/28 flight * PCP Dr. Garcia in [place] * Pharmacy [facility] in [place] * Preadmission Environment Home with Family * ADLs Partial Dependent * Partial ADLs (Assistance needed) Ambulation * Equipment Glucometer Other * Other Equipment Knee scooter Blood pressure cuff * List name and contact numbers for known caregivers / representatives who currently or will assist patient after discharge: Tej Masters - spouse - [phone] * Verbal permission to speak to the caregivers and representatives has been obtained from the patient. Yes * Community resources currently utilized Other * Please name any agencies selected above. [place] outpatient dialysis M-W-F * Additional services required to return to the preadmission environment? Yes * Can the patient safely return to the preadmission environment? Yes * Has this patient been hospitalized within the prior 30 days at any hospital? No Coverage Notice Reviewer: [id number] Elvi Pearson Notice Issued Date-Time: 11/08/2018 17:06 Notice Type: Patient Choice Letter Notice Delivered To: Patient Relationship to Patient: Self Grab Setter Name: Delivery Method: HAND - Hand Delivered Venus Days: Prior Verbal Notification: Recipient Understood Notice: Yes Recipient Signature: Yes Med Rec Note Co-signed by Attending: Coverage Notice Comment: ZULEYMA for [facility] in [place] Last DP export: 11/08/18 4:03 p Patient Name: DEON MASTERS Page 37301 at 1709 All edits/amendments must be made on the electronic document DICTATION DATE: 11/08/181708 LUBRICATING ENGINEER: JUWAN 11/08/181708 RPT#: [id number] DC DATE: STATUS: ADM IN [facility] [address] [place] [address] END OF REPORT
[2018-11-08 20:00] VITALS: BP 98/48
--- NOTE | 2018-11-08 20:10 | NUR ---
LYING QUEITLY WITH NO DISTRESS NOTED. NO COMPALITNS VOICED. RESP UNLABOERD. IV TO RAC WITHOUT REDNESS OR EDEMA NOTED. CL IN REACH. FAMILY AT BEDSIDE.
[2018-11-08 21:16] LABS: APPEARANCE TURBID (CLEAR); BILIRUBIN NEGATIVE (NEGATIVE); COLOR YELLOW (YELLOW); GLUCOSE NEGATIVE (NEGATIVE); KETONE NEGATIVE (NEGATIVE); NITRITE NEGATIVE (NEGATIVE); PROTEIN 3+ mg/dL (NEGATIVE); UROBILINOGEN NORMAL (NORMAL)
[2018-11-08 21:17] LABS: WHITE CELLS - URINE >50 /hpf (0-5)
[2018-11-08 21:18] LABS: BACTERIA MODERATE /hpf (NONE SEEN); RED CELLS - URINE 0-5 /hpf (0-5); YEAST OCC /hpf (NONE SEEN)
[2018-11-09] VITALS: BP 106/51
[2018-11-09 04:00] VITALS: BP 97/46
--- NOTE | 2018-11-09 04:16 | NUR ---
I have reviewed this patient and I concur with the Shift Assessment completed by the Licensed Practical Nurse today this shift.
[2018-11-09 05:04] LABS: BASOPHILS 0.3 % (0-2); EOSINOPHILS 5.4 % (0-7); HEMATOCRIT 29.7 % (36.0-48.0); HEMOGLOBIN 9.1 g/dL (12-16); IMMATURE GRANULOCYTES 0.3 % (0-5); LYMPHOCYTES 17.5 % (15-50); MCH 27.5 pg (26.0-34.0); MCHC 30.6 g/dL (31.0-37.0); MCV 89.7 fL (80.0-100.0); MEAN PLATELET VOLUME 8.8 fL (7.4-10.4); NEUTROPHILS 67.5 % (40-80); PLATELET COUNT 356 10x3/uL (130-400); RBC 3.31 10x6/uL (4.00-5.40); RDW 16.5 % (11.5-14.5); WBC 11.8 10x3/uL (4.8-10.8)
[2018-11-09 05:57] LABS: ANION GAP 11.4 mmol/L (8-16); CALCIUM 8.8 mg/dL (8.5-10.1); CREATININE - SERUM 6.2 mg/dL (0.6-1.3); POTASSIUM - SERUM 4.4 mmol/L (3.5-5.1); VANCOMYCIN - RANDOM 21.1 ug/mL (10.0-20.0)
--- NOTE | 2018-11-09 07:35 | NUR ---
PT RESTING IN BED, EYES CLOSED. RESPIRATIONS EVEN AND UNLABORED. AROUSES TO VOICE. ALERT AND ORIENTED. UP WITH ASSIST. 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 ULCER TO PLANTAR ASPECT OF LEFT FOOT. LEFT ARM RESERVE, FISTULA, THRILL AND BRUIT PRESENT. IV TO RIGHT AC, SL. SITE PATENT WITHOUT REDNESS OR SWELLING. PT ACHS. PT DENIES ANYTHING FURTHER AT THIS TIME. CALL LIGHT IN REACH. WILL CONTINUE TO MONITOR.
[2018-11-09 09:38] VITALS: BP 136/70
[2018-11-09 14:11] VITALS: BP 105/59
--- NOTE | 2018-11-09 14:38 | NUR ---
Nutrition Follow Up: Chart reviewed Diet: Renal ADA PO Intake: 100% meal avg Wt stable Meds and labs reviewed Rec continue current diet. RD following.
--- NOTE | 2018-11-09 15:41 | MORECARE ---
CASE MANAGEMENT DISCHARGE SUMMARY PATIENT: DEON MASTERS UNIT: [id number] ADM DATE: 11/06/18 AGE: 63 : 59 SEX: F ROOM/BED: D.2234 AUTHOR: JAY,DOC PHYSICIAN: REFERRING PHYSICIAN: PARDEEP ESTRADA MD DATE OF SERVICE: 11/09/18 Discharge Plan Patient Name: DEON MASTERS Facility: [facility]:[place] : 1955 Planned Disposition: Home with Home Health Anticipated Discharge Date: Discharge Date: Expected LOS: Initial Reviewer: [id number] Initial Review Date: 11/08/2018 Generated: 11/09/18 4:41 pm DCP- Discharge Planning Updated by [id number]: Alexandra Pearson on 11/08/18 4:[address] Patient Name: DEON MASTERS Admission Status: ER Accout number: [id number] Admission Date: 11-06-2018 : 1955 Admission Diagnosis: Attending: PARDEEP ESTRADA Current LOS: 2 Anticipated DC Date: Planned Disposition: Home with Home Health Primary Insurance: [employer] POS Discharge Planning Comments: CM met with patient to complete initial dc planning assessment. CM educated patient on the CM role and verbal consent given by patient to complete assessment. Patient lives at home with her spouse. At discharge patient plans to return and feels this is a safe discharge. States her will take her home on discharge. CM discussed availability of home health, rehab services, and medical equipment. Patient states she has had [facility] in [place] before and would like to use the same agency again. ZULEYMA signed for [facility] in [place], I will call in am when they are open. CM will continue to follow and will assist as needed with dc plans/needs. [facility] in [place] - P [phone] F [phone] Drywall Applicator: Alexandra Pearson DCPIA - Discharge Planning Initial Assessment Updated by [email or web address]: Alexandra Pearson on 11/08/18 5:03 pm * Is the patient Alert and Oriented? Yes * How many steps to enter\exit or inside your home? / flight * PCP Dr. Garcia in [place] * Pharmacy [facility] in [place] * Preadmission Environment Home with Family * ADLs Partial Dependent * Partial ADLs (Assistance needed) Ambulation * Equipment Glucometer Other * Other Equipment Knee scooter Blood pressure cuff * List name and contact numbers for known caregivers / representatives who currently or will assist patient after discharge: Tej Masters - spouse - [phone] * Verbal permission to speak to the caregivers and representatives has been obtained from the patient. Yes * Community resources currently utilized Other * Please name any agencies selected above. [place] outpatient dialysis M-W-F * Additional services required to return to the preadmission environment? Yes * Can the patient safely return to the preadmission environment? Yes * Has this patient been hospitalized within the prior 30 days at any hospital? No External Providers External Provider: OTHER-OTHER Next Contact Date: Service Request Date: Service Type: Resolution: Reviewer: Comments: Coverage Notice Reviewer: [id number] Elvi Pearson Notice Issued Date-Time: 11/08/2018 17:06 Notice Type: Patient Choice Letter Notice Delivered To: Patient Relationship to Patient: Self Physician Assistant Name: Delivery Method: HAND - Hand Delivered Venus Days: Prior Verbal Notification: Recipient Understood Notice: Yes Recipient Signature: Yes Med Rec Note Co-signed by Attending: Coverage Notice Comment: ZULEYMA for [facility] in [place] Last DP export: 11/08/18 4:09 p Patient Name: DEON MASTERS Page [phone] at 1541 All edits/amendments must be made on the electronic document DICTATION DATE: 11/09/18 1540 UNIT CONTROLLER: JUWAN 11/09/18 1540 RPT#: [id number] DC DATE: STATUS: ADM IN [facility] [address] [facility] [place] [address] END OF REPORT
--- NOTE | 2018-11-09 15:56 | MORECARE ---
CASE MANAGEMENT DISCHARGE SUMMARY PATIENT: DEON MASTERS UNIT: [id number] ADM DATE: 11/06/18 AGE: 63 : 59 SEX: F ROOM/BED: D.2234 AUTHOR: JAY,DOC PHYSICIAN: REFERRING PHYSICIAN: PARDEEP ESTRADA MD DATE OF SERVICE: 11/09/18 Discharge Plan Patient Name: DEON MASTERS Facility: [facility]:[place] : 1955 Planned Disposition: Home with Home Health Anticipated Discharge Date: Discharge Date: Expected LOS: Initial Reviewer: [email or web address] Initial Review Date: 11/08/2018 Generated: 11/09/18 4:56 pm Comments DCP- Discharge Planning Updated by [email or web address]: Alexandra Pearson on 11/09/18 2:[address] Met with patient about discharge planning. She states she would still like [facility] to start seeing her again concerning her foot wound. I called [facility] in [place] and spoke with Joyce, they can do start of care on Tuesday, clinical faxed. CM will continue to follow and assist with discharge planning/needs DCP- Discharge Planning Updated by [email or web address]: Alexandra Pearson on 11/08/18 4:[address] Patient Name: DEON MASTERS Admission Status: ER Accout number: [id number] Admission Date: 11-06-2018 : 1955 Admission Diagnosis: Attending: PARDEEP ESTRADA Current LOS: 2 Anticipated DC Date: Planned Disposition: Home with Home Health Primary Insurance: [facility] POS Discharge Planning Comments: CM met with patient to complete initial dc planning assessment. CM educated patient on the CM role and verbal consent given by patient to complete assessment. Patient lives at home with her spouse. At discharge patient plans to return and feels this is a safe discharge. States her will take her home on discharge. CM discussed availability of home health, rehab services, and medical equipment. Patient states she has had [facility] in [place] before and would like to use the same agency again. ZULEYMA signed for [facility] in [place], I will call in am when they are open. CM will continue to follow and will assist as needed with dc plans/needs. [facility] in [place] - P [phone] F [phone] Farmworker Poultry: Alexandra Pearson DCPIA - Discharge Planning Initial Assessment Updated by [email or web address]: Alexandra Pearson on 11/08/18 5:03 pm * Is the patient Alert and Oriented? Yes * How many steps to enter\exit or inside your home? 3/ flight * PCP Dr. Garcia in [place] * Pharmacy [facility] in [place] * Preadmission Environment Home with Family * ADLs Partial Dependent * Partial ADLs (Assistance needed) Ambulation * Equipment Glucometer Other * Other Equipment Knee scooter Blood pressure cuff * List name and contact numbers for known caregivers / representatives who currently or will assist patient after discharge: Tej Masters - spouse - [phone] * Verbal permission to speak to the caregivers and representatives has been obtained from the patient. Yes * Community resources currently utilized Other * Please name any agencies selected above. [place] outpatient dialysis M-W- * Additional services required to return to the preadmission environment? Yes * Can the patient safely return to the preadmission environment? Yes * Has this patient been hospitalized within the prior 30 days at any hospital? No Coverage Notice Reviewer: [id number] - Alexandra Pearson Notice Issued Date-Time: 11/08/2018 17:06 Notice Type: Patient Choice Letter Notice Delivered To: Patient Relationship to Patient: Self Chemical Packager Name: Delivery Method: HAND - Hand Delivered Venus Days: Prior Verbal Notification: Recipient Understood Notice: Yes Recipient Signature: Yes Med Rec Note Co-signed by Attending: Coverage Notice Comment: ZULEYMA for [facility] in [place] Last DP export: 11/09/18 2:41 p Patient Name: DEON MASTERS Page [id number] at 1556 All edits/amendments must be made on the electronic document DICTATION DATE: 11/09/186 HOME INSPECTOR: JUWAN 11/09/181555 RPT#: [id number] DC DATE: STATUS: ADM IN [facility] [address] [place] [address] END OF REPORT
--- NOTE | 2018-11-09 17:02 | NUR ---
I have reviewed this patient and I concur with the Shift Assessment completed by the Licensed Practical Nurse today this shift.
[2018-11-09 17:56] VITALS: BP 117/61
--- NOTE | 2018-11-09 18:35 | NUR ---
PT RESTING IN BED, EYES OPEN. NO C/O PAIN. NO S/S OF ACUTE DISTRESS NOTED. PT DENIES ANYTHING FURTHER AT THIS TIME. CALL LIGHT IN REACH. WILL CONTINUE TO MONITOR. CALL LIGHT IN REACH. WILL CONTINUE TO MONITOR.
--- NOTE | 2018-11-09 20:00 | NUR ---
ALERT RESTING IN BEDDENIES NEEDS AT THIS TIME SEE SHIFT ASSESSMENT, CALL LIGHT IN REACH
[2018-11-09 21:08] VITALS: BP 113/56
[2018-11-10 01:39] VITALS: BP 145/61
[2018-11-10 04:58] VITALS: BP 102/72
[2018-11-10 06:13] LABS: BASOPHILS 0.4 % (0-2); EOSINOPHILS 5.2 % (0-7); HEMATOCRIT 29.2 % (36.0-48.0); HEMOGLOBIN 8.9 g/dL (12-16); IMMATURE GRANULOCYTES 0.3 % (0-5); LYMPHOCYTES 15.3 % (15-50); MCH 27.1 pg (26.0-34.0); MCHC 30.5 g/dL (31.0-37.0); MONOCYTES 7.6 % (2-11); NEUTROPHILS 71.2 % (40-80); PLATELET COUNT 377 10x3/uL (130-400); RBC 3.28 10x6/uL (4.00-5.40); RDW 16.6 % (11.5-14.5); WBC 11.5 10x3/uL (4.8-10.8)
[2018-11-10 06:43] LABS: ANION GAP 14.1 mmol/L (8-16); CALCIUM 8.9 mg/dL (8.5-10.1); CARBON DIOXIDE 28.2 mmol/L (21.0-32.0); CREATININE - SERUM 7.8 mg/dL (0.6-1.3); POTASSIUM - SERUM 4.3 mmol/L (3.5-5.1); VANCOMYCIN - RANDOM 20.5 ug/mL (10.0-20.0)
[2018-11-10 08:45] VITALS: BP 110/62
--- NOTE | 2018-11-10 09:00 | NUR ---
ALERT AND ORIENTED WITH FISTULA NOTED TO LUE WITH THRILL AND BRUI NOTED. ABDOMEN SOFT WITH BS NOTED. S/L TO RT. A/C. DENIES ANY PAIN OR DISCOMFORT AT THIS TIME. ENCOURAGED TO USE CALL LIGHT FOR ASSIST. DRESSIGN DRY AND INTACT TO RLE.
[2018-11-10 14:37] VITALS: BP 107/56
[2018-11-10 18:03] VITALS: BP 115/71; BP 125/60
--- NOTE | 2018-11-10 19:15 | NUR ---
RECEIVED CARE FROM DAY NURSE. OFF FLOOR IN DIALYSIS.
--- NOTE | 2018-11-10 21:00 | NUR ---
CALL FROM DIALYSIS. PT READY TO BE PICKED UP. PER REPORTS NO COMPLICATIONS DURING DIALYSIS.
[2018-11-10 21:22] VITALS: BP 128/61
[2018-11-11 01:22] VITALS: BP 103/51
[2018-11-11 05:14] VITALS: BP 119/68
[2018-11-11 06:24] LABS: BASOPHILS 0.4 % (0-2); EOSINOPHILS 4.4 % (0-7); HEMATOCRIT 30.1 % (36.0-48.0); HEMOGLOBIN 9.2 g/dL (12-16); IMMATURE GRANULOCYTES 0.4 % (0-5); LYMPHOCYTES 15.1 % (15-50); MCH 27.4 pg (26.0-34.0); MCHC 30.6 g/dL (31.0-37.0); MCV 89.6 fL (80.0-100.0); MEAN PLATELET VOLUME 8.8 fL (7.4-10.4); MONOCYTES 8.8 % (2-11); NEUTROPHILS 70.9 % (40-80); PLATELET COUNT 376 10x3/uL (130-400); RBC 3.36 10x6/uL (4.00-5.40); RDW 16.9 % (11.5-14.5); WBC 11.3 10x3/uL (4.8-10.8)
--- NOTE | 2018-11-11 06:39 | NUR ---
I have reviewed this patient and I concur with the Shift Assessment completed by the Licensed Practical Nurse today this shift.
[2018-11-11 07:13] LABS: ANION GAP 14.2 mmol/L (8-16); C-REACTIVE PROTEIN 9.5 mg/dL (0.0-0.9); CALCIUM 8.9 mg/dL (8.5-10.1); CARBON DIOXIDE 28.5 mmol/L (21.0-32.0); CREATININE - SERUM 5.9 mg/dL (0.6-1.3); POTASSIUM - SERUM 3.7 mmol/L (3.5-5.1); VANCOMYCIN - RANDOM 15.8 ug/mL (10.0-20.0)
[2018-11-11 07:36] LABS: ERYTHROCYTE SEDIMENTATION RATE 135 mm/hr (0-30)
[2018-11-11 08:47] VITALS: BP 127/67
[2018-11-11] MEDS ORDERED: LEVOFLOXACIN500 MG PO (09:34)
[2018-11-11] MEDS ORDERED: FLORAJEN3 CAPS460 MG PO (09:35)
--- NOTE | 2018-11-11 11:15 | MORECARE ---
CASE MANAGEMENT DISCHARGE SUMMARY PATIENT: DEON MASTERS UNIT: [id number] ADM DATE: 11/06/18 AGE: 63 : 59 SEX: F ROOM/BED: D.2234 AUTHOR: HUBER THOMPSON PHYSICIAN: REFERRING PHYSICIAN: PARDEEP ESTRADA MD DATE OF SERVICE: 11/11/18 Discharge Plan Patient Name: DEON MASTERS Facility: [facility]:[place] : 1955 Planned Disposition: Home with Home Health Anticipated Discharge Date: Discharge Date: Expected LOS: Initial Reviewer: [email or web address] Initial Review Date: 11/08/2018 Generated: 11/11/18 12:15 pm Comments DCP- Discharge Planning Updated by [email or web address]: Beatriz Newman on 11/11/18 10:[address] Patient Name: DEON MASTERS Encounter No: [id number] : 1955 Primary Insurance: [employer] POS Anticipated DC Date: Planned Disposition: Home with Home Health External Planned Provider: : DCP follow-up note: Patient and family in agreement with discharge plan. No changes to plan. DC SUMMARY FAXED TO [facility] IN [place] AT [phone]. [facility] PHONE # IS [phone]. Case management will follow and assist as needed. Beatriz Newman DCP- Discharge Planning Updated by [email or web address]: Alexandra Pearson on 11/09/18 2:[address] Met with patient about discharge planning. She states she would still like [facility] to start seeing her again concerning her foot wound. I called [facility] in [place] and spoke with Joyce, they can do start of care on Tuesday, clinical faxed. CM will continue to follow and assist with discharge planning/needs DCP- Discharge Planning Updated by [email or web address]: Alexandra Mendenhallkeren on 11/08/18 4:[address] Patient Name: DEON MASTERS Admission Status: ER Accout number: [id number] Admission Date: 11-06-2018 : 1955 Admission Diagnosis: Attending: PARDEEP ESTRADA Current LOS: 2 Anticipated DC Date: Planned Disposition: Home with Home Health Primary Insurance: [id number] POS Discharge Planning Comments: CM met with patient to complete initial dc planning assessment. CM educated patient on the CM role and verbal consent given by patient to complete assessment. Patient lives at home with her spouse. At discharge patient plans to return and feels this is a safe discharge. States her will take her home on discharge. CM discussed availability of home health, rehab services, and medical equipment. Patient states she has had [facility] in [place] before and would like to use the same agency again. ZULEYMA signed for [facility] in [place], I will call in am when they are open. CM will continue to follow and will assist as needed with dc plans/needs. [facility] in [place] - P [phone] F [phone] Children Teacher: Alexandra Pearson DCPIA - Discharge Planning Initial Assessment Updated by [id number]: Alexandra Pearson on 11/08/18 5:03 pm * Is the patient Alert and Oriented? Yes * How many steps to enter\exit or inside your home? 07/28 flight * PCP Dr. Garcia in [place] * Pharmacy [facility] in [place] * Preadmission Environment Home with Family * ADLs Partial Dependent * Partial ADLs (Assistance needed) Ambulation * Equipment Glucometer Other * Other Equipment Knee scooter Blood pressure cuff * List name and contact numbers for known caregivers / representatives who currently or will assist patient after discharge: Tej Masters - spouse - [phone] * Verbal permission to speak to the caregivers and representatives has been obtained from the patient. Yes * Community resources currently utilized Other * Please name any agencies selected above. [place] outpatient dialysis M-W-F * Additional services required to return to the preadmission environment? Yes * Can the patient safely return to the preadmission environment? Yes * Has this patient been hospitalized within the prior 30 days at any hospital? No Coverage Notice Reviewer: [id number] - Alexandra Pearson Notice Issued Date-Time: 11/08/2018 17:06 Notice Type: Patient Choice Letter Notice Delivered To: Patient Relationship to Patient: Self Operations Processor Name: Delivery Method: HAND - Hand Delivered Venus Days: Prior Verbal Notification: Recipient Understood Notice: Yes Recipient Signature: Yes Med Rec Note Co-signed by Attending: Coverage Notice Comment: ZULEYMA for [employer] in [place] Last DP export: 6/13/19 2:56 p Patient Name: DEON MASTERS Page 12181 at 1115 All edits/amendments must be made on the electronic document DICTATION DATE: 11/11/181113 NEUROSURGICAL PHYSICIAN ASSISTANT: JUWAN 11/11/181113 RPT#: [id number] DC DATE: STATUS: ADM IN [facility] [address] [place] [address] END OF REPORT
--- NOTE | 2018-11-11 12:56 | NUR ---
WENT OVER DC INSTRUCTIONS AND FOLLOW UP INSTRUCTIONS. ALL QUESTIONS ANSWERED
--- NOTE | 2018-11-11 15:56 | MORECARE ---
CASE MANAGEMENT DISCHARGE SUMMARY PATIENT: DEON MASTERS UNIT: [id number] ADM DATE: 11/06/18 AGE: 63 : 59 SEX: F ROOM/BED: D.2234 AUTHOR: JAYDOC PHYSICIAN: REFERRING PHYSICIAN: PARDEEP ESTRADA MD DATE OF SERVICE: 11/11/18 Discharge Plan Patient Name: DEON MASTERS Facility: [facility] : 1955 Planned Disposition: Home with Home Health Anticipated Discharge Date: Discharge Date: 11/11/2018 Expected LOS: Initial Reviewer: [email or web address] Initial Review Date: 11/08/2018 Generated: 11/11/18 4:56 pm Comments DCP- Discharge Planning Updated by [email or web address]: Beatriz Newman on 11/11/18 10:[address] Patient Name: DEON MASTERS Encounter No: [id number] : 1955 Primary Insurance: [employer] POS Anticipated DC Date: Planned Disposition: Home with Home Health External Planned Provider: : DCP follow-up note: Patient and family in agreement with discharge plan. No changes to plan. DC SUMMARY FAXED TO [facility] IN [place] AT [phone]. [facility] PHONE # IS [phone]. Case management will follow and assist as needed. Beatriz Newman DCP- Discharge Planning Updated by [id number]: Alexandra Pearson on 11/09/18 2:[address] Met with patient about discharge planning. She states she would still like [facility] to start seeing her again concerning her foot wound. I called [facility] in [place] and spoke with Joyce, they can do start of care on Tuesday, clinical faxed. CM will continue to follow and assist with discharge planning/needs DCP- Discharge Planning Updated by [email or web address]: Alexandralorie Pearson on 11/08/18 4:[address] Patient Name: DEON MASTERS Admission Status: ER Accout number: [id number] Admission Date: 11-06-2018 : 1955 Admission Diagnosis: Attending: PARDEEP ESTRADA Current LOS: 2 Anticipated DC Date: Planned Disposition: Home with Home Health Primary Insurance: [facility] Discharge Planning Comments: CM met with patient to complete initial dc planning assessment. CM educated patient on the CM role and verbal consent given by patient to complete assessment. Patient lives at home with her spouse. At discharge patient plans to return and feels this is a safe discharge. States her will take her home on discharge. CM discussed availability of home health, rehab services, and medical equipment. Patient states she has had [facility] in [place] before and would like to use the same agency again. ZULEYMA signed for [facility] in [place], I will call in am when they are open. CM will continue to follow and will assist as needed with dc plans/needs. [facility] in [place] - P [phone] F [phone] Monument Letterer: Alexandra Pearson DCPIA - Discharge Planning Initial Assessment Updated by [email or web address]: Alexandra Pearson on 11/08/18 5:03 pm * Is the patient Alert and Oriented? Yes * How many steps to enter\exit or inside your home? 07/28 flight * PCP Dr. Garcia in [place] * Pharmacy [facility] in [place] * Preadmission Environment Home with Family * ADLs Partial Dependent * Partial ADLs (Assistance needed) Ambulation * Equipment Glucometer Other * Other Equipment Knee scooter Blood pressure cuff * List name and contact numbers for known caregivers / representatives who currently or will assist patient after discharge: Tej Masters - spouse - [phone] * Verbal permission to speak to the caregivers and representatives has been obtained from the patient. Yes * Community resources currently utilized Other * Please name any agencies selected above. [place] outpatient dialysis M-W-F * Additional services required to return to the preadmission environment? Yes * Can the patient safely return to the preadmission environment? Yes * Has this patient been hospitalized within the prior 30 days at any hospital? No Coverage Notice Reviewer: [id number] - Alexandra Pearson Notice Issued Date-Time: 11/08/2018 17:06 Notice Type: Patient Choice Letter Notice Delivered To: Patient Relationship to Patient: Self Senior Grant Writer Name: Delivery Method: HAND - Hand Delivered Venus Days: Prior Verbal Notification: Recipient Understood Notice: Yes Recipient Signature: Yes Med Rec Note Co-signed by Attending: Coverage Notice Comment: ZULEYMA for [facility] in [place] Last DP export: 11/11/18 10:15 a Patient Name: DEON MASTERS Page [id number] at 1556 All edits/amendments must be made on the electronic document DICTATION DATE: 11/11/18 1556 ANESTHESIA ASSOCIATE: JUWAN 11/11/18 1556 RPT#: [id number] DC DATE:11/11/18 STATUS: DIS IN [facility] [address] [place] [address] END OF REPORT
== END 2018-11-11 13:06 | disposition home health service (06) | DRG 73 ==
LOC: D.ER 13:42 → D.MS 20:28
PROVIDERS: Emergency Medicine; Family Medicine; Student in an Organized Health Care Education/Training Program; ADMIT Internal Medicine; ATTEND Internal Medicine
DX: E11.610 Type 2 diabetes mellitus with diabetic neuropathic arthropathy (principal); N18.6 End stage renal disease; M86.171 Other acute osteomyelitis, right ankle and foot; L97.404 Non-pressure chronic ulcer of unspecified heel and midfoot with necrosis of bone; I12.0 Hypertensive chronic kidney disease with stage 5 chronic kidney disease or end stage renal disease; M86.141 Other acute osteomyelitis, right hand; E11.621 Type 2 diabetes mellitus with foot ulcer; E11.22 Type 2 diabetes mellitus with diabetic chronic kidney disease; Z99.2 Dependence on renal dialysis; E11.69 Type 2 diabetes mellitus with other specified complication

== ENCOUNTER 2018-12-12 15:45 | Inpatient (IN) | payer OTHER, MEDICARE ==
[~2018-12-12] VITALS: Ht 160 cm; Wt 72.7 kg
[~2018-12-12 15:45] MED LIST changes: +FLORAJEN3 CAPS460 MG PO
[2018-12-13] MEDS ORDERED: LANTUS SC (14:20)
[2018-12-14 10:21] LABS: HEMATOCRIT 32.5 % (36.0-48.0); MCHC 30.8 g/dL (31.0-37.0); MCV 87.6 fL (80.0-100.0); MEAN PLATELET VOLUME 8.7 fL (7.4-10.4); RBC 3.71 10x6/uL (4.00-5.40); RDW 17.3 % (11.5-14.5); WBC 12.7 10x3/uL (4.8-10.8)
[2018-12-14 10:38] LABS: ANION GAP 10.4 mmol/L (8-16); CALCIUM 8.4 mg/dL (8.5-10.1); CARBON DIOXIDE 32.2 mmol/L (21.0-32.0); CREATININE - SERUM 5.1 mg/dL (0.6-1.3); POTASSIUM - SERUM 3.6 mmol/L (3.5-5.1)
[2018-12-14 13:16] VITALS: BMI 33.7
[2018-12-14 16:19] VITALS: BMI 33.5
[2018-12-14 17:31] VITALS: BP 104/55
--- NOTE | 2018-12-14 19:00 | NUR ---
REPORT RECIEVED. PT SEMI FOWLERS IN BED. PT STATES SHE IS IN PAIN. PAIN MEDS GIVEN. NO S/S OF DISTRESS. BREATHING EVEN AND UNLABORED. PT ON O2 3L. PIV PATENT. PT CHANTAL ANY NEEDS AT THIS TIME. CALL LIGHT WITHIN REACH. BED IN LOWEST POSITION. WILL CONT WITH POC.
[2018-12-14 20:00] VITALS: BP 100/49
--- NOTE | 2018-12-14 20:50 | NUR ---
SCD ON LT LEG PLACED. STUMP IS PROTECTED WITH CAMRON BANDAGE. PT IS NOT CURRENTLY USING PROSTHETIC. PT CHANTAL ANY NEEDS AT THIS TIME.
[2018-12-15] VITALS: BP 110/60
--- NOTE | 2018-12-15 00:03 | NUR ---
PT WATCHING TV AT THIS TIME. NO CHANGE IN PERIPHERAL PULSES NOTED. CAMRON BANDAGE ON RT KNEE DRY, INTACTED. PT STATES SHE IS IN NO PAIN. NO S/S OF DISTRESS. BREATHING EVEN AND UNLABORED. CALL LIGHT WITHIN REACH. BED IN LOWEST POSITON. PT DENIES ANY NEEDS AT THIS TIME.
[2018-12-15 04:00] VITALS: BP 123/67
[2018-12-15 06:32] LABS: HEMATOCRIT 26.1 % (36.0-48.0)
--- NOTE | 2018-12-15 06:32 | NUR ---
PT RESTING AT THIS TIME. NO S/S OF DISTRESS. BREATHING EVEN AND UNLABORED. PT DENIES ANY NEEDS AT THIS TIME. PIV NS @ 50ML/HR PATENT AND INTACTED. CALL LIGHT WITHIN REACH. BED IN LOWEST POSITON. WILL CONT WITH POC.
[2018-12-15 06:49] LABS: HEMOGLOBIN 7.6 g/dL (12-16)
[2018-12-15 09:49] VITALS: BP 131/60
--- NOTE | 2018-12-15 10:48 | NUR ---
PATIENT IS AWAKE AND ALERT. CONTROLLING PAIN ORDERED FOR FRESH AMPUTATION ON RIGHT FOOT.
--- NOTE | 2018-12-15 11:22 | OP ---
PATIENT NAME: DEON MILLER MEDICAL RECORD: [id number] :[birth year] LOCATION:D.M2 D.2110 ADMISSION DATE:12/14/18 SURGEON: CHRISTOPHER RUEDA MD DATE OF OPERATION: 12/14/2018 PREOPERATIVE DIAGNOSIS: Chronic osteomyelitis of the right lower extremity with Charcot arthropathy. POSTOPERATIVE DIAGNOSIS: Chronic osteomyelitis of the right lower extremity with Charcot arthropathy. PROCEDURE: Right below-knee amputation. SURGEON: Christopher Rueda MD TAXI SERVICER: AGUSTIN Sharma INTRAOPERATIVE COMPLICATIONS: None. SUMMARY OF PATHOLOGIC FINDINGS: The patient indeed had long-standing osteomyelitis with Charcot arthropathy. INDICATIONS: After years of the patient's working with podiatry, the patient got an intractable osteomyelitis and decided to have below-knee amputation. Risks, hazards, and benefits associated with this procedure were discussed with the patient at length. She understood and wished to proceed. OPERATIVE SUMMARY IN DETAIL: After obtaining the appropriate preoperative orthopedic surgery consent as well as anesthetic consultation, evaluation, and clearance, the patient was brought to the operating room and placed on the operating table in the supine position. After general laryngeal mask airway was administered, right lower extremity was prepared with a tourniquet about the proximal aspect. The right lower extremity was then prepped and draped in routine sterile fashion. At this point, the appropriate time-out was taken with all patient identifications and procedural indications as well as current meds. All were agreed upon. The leg was elevated and exsanguinated. Tourniquet was inflated to 350 mmHg. Routine posterior flap-type incision was made for the BKA. Incision was taken down to the level of the tibia and the fibula. An osteotomy was performed with the fibula higher than the tibia. Chevron tip was placed in the anterior aspect of the osteotomy. The back flap was then cut off with the amputation knife. The appropriate amount of the gastrocs was resected for easy turn and soft flap. At this point, the wound was copiously irrigated. All vessels were identified and ligated. It was then irrigated. The tourniquet was deflated. Any further bleeding vessels were either ligated or coagulated to control all bleeding. Gastroc flap was then brought posterior to the anterior periosteum and fascia, and reapproximated with #1 Vicryl. This was followed by #1 and 2-0 Vicryl for reapproximation of the subcutaneous tissue. Final closure was achieved with skin maryjo. Sterile dressings were applied. The patient was awakened and taken to recovery room in stable condition. All final needle and sponge counts were correct. TRANSINT:[id number] Voice Confirmation ID: [id number] DOCUMENT ID: [id number] OPERATIVE REPORT [id number] DEON MILLER MD, CHRISTOPHER FERGUSON at 1122 CC: [id number] DICTATION DATE: 12/14/18 1518 WEIGHT COUNT OPERATOR: 12/14/182031 ADM IN [facility] [address] [place] [id number]
--- NOTE | 2018-12-15 12:17 | NUR ---
PATIENT IS IN DIALYSIS AT THIS TIME. ANTIBIOTIC SENT DOWN WITH PATIENT TO BE GIVEN IN DIALYSIS WHEN THEY REPLACE THE BLOOD.
--- NOTE | 2018-12-15 12:18 | NUR ---
THERE IS AN ORDER FOR PRBC. PATIENT HAS BEEN TYPE AND CROSSED AND WHEN THE BLOOD IS READY I WILL BRING IT DOWN TO DIALYSIS AND THEY CAN GIVE IT THERE. CALLING LAB TO SEE IF THEY WILL CALL ME WHEN IT IS READY.
[2018-12-15 12:43] VITALS: Ht 160 cm; Wt 72.7 kg
--- NOTE | 2018-12-15 14:52 | NUR ---
Patient is in dialysis and is recieving one unit of PRBCs there at this time.
--- NOTE | 2018-12-15 15:20 | NUR ---
PATIENT HAS RETURNED FROM DIALYSIS. 2 LITERS OFF. ONE UNIT OF BLOOD AND ANTIBIOTICS GIVEN IN DIALYSIS. PATIENT REPORTS THAT SHE GETS FINGERSTICKS, HOWEVER IT IS NOT ORDERED. WENT AHEAD AND CHECKED HER BLOODSUGAR. IT IS 156. SHE IS ABOUT TO EAT LUNCH AND DOES NOT HAVE ANY OTHER NEEDS AT THIS TIME.
[2018-12-15 17:31] VITALS: BP 117/64
--- NOTE | 2018-12-15 19:43 | NUR ---
AWAKE AND DENIES PAIN STATES VERY VERY LOW SKIN WARM AND DRY ANTIBIOTIC INFUSING INTO RT WRIST IV CAMRON INTACT AROUND RT LOWER STUMP REATTACHED SCD TO LEFT LOWER EXTREMITY BED IS LOW AND LOCKED SR X2 AND CALL LIGHT IS IN REACH
[2018-12-15 20:00] VITALS: BP 113/62
--- NOTE | 2018-12-15 22:23 | NUR ---
FOUND TO HAVE A FEVER OVER 101 HYDROS GIVEN DUE TO TYLENOL CONTENT AND PT DOES REMAIN IN PAIN
[2018-12-16] VITALS: BP 103/56
--- NOTE | 2018-12-16 04:04 | NUR ---
I have reviewed this patient and I concur with the Shift Assessment completed by the Licensed Practical Nurse today this shift.
[2018-12-16 04:30] VITALS: BP 111/62
[2018-12-16 05:04] LABS: BASOPHILS 0.4 % (0-2); EOSINOPHILS 0.9 % (0-7); HEMATOCRIT 28.6 % (36.0-48.0); HEMOGLOBIN 8.7 g/dL (12-16); IMMATURE GRANULOCYTES 0.8 % (0-5); LYMPHOCYTES 12.4 % (15-50); MCH 26.5 pg (26.0-34.0); MCHC 30.4 g/dL (31.0-37.0); MCV 87.2 fL (80.0-100.0); MEAN PLATELET VOLUME 8.7 fL (7.4-10.4); MONOCYTES 8.2 % (2-11); NEUTROPHILS 77.3 % (40-80); PLATELET COUNT 257 10x3/uL (130-400); RBC 3.28 10x6/uL (4.00-5.40); RDW 17.4 % (11.5-14.5)
[2018-12-16 05:10] LABS: ANION GAP 12.1 mmol/L (8-16); CALCIUM 7.6 mg/dL (8.5-10.1); CARBON DIOXIDE 29.5 mmol/L (21.0-32.0); CREATININE - SERUM 5.9 mg/dL (0.6-1.3); POTASSIUM - SERUM 3.6 mmol/L (3.5-5.1)
--- NOTE | 2018-12-16 07:54 | NUR ---
PATIENT IS SITTING UP IN BED AND ALERT AND ORIENTED. STATES THAT HER PAIN IS A 5 AT THIS TIME. SHE HAS A IV INFUSING IN HER RIGHT FOREARM AND THE SITE IS LEAKING. STOPPED THE INFUSION AND AM REASSESSING THE SITE.
[2018-12-16 08:06] VITALS: BP 105/60
--- NOTE | 2018-12-16 10:05 | NUR ---
IV IN LEFT ARM REMOVED BECAUSE IT WAS INFILTRATED. CATHETER INTACT PATIENT TOLERATED. PATIENT IS WARM AND CLAMMY. WILL START A NEW IV NOW.
--- NOTE | 2018-12-16 10:41 | NUR ---
NEW IV START IN RIGHT HAND. CLAMMY TEMP AND WARMTH REPORTED TO ELMO GIBSON. THE PAIN MEDICINE WAS LOST BECAUSE HER IV WENT BAD. I REPORTED THE WASTE, AND PULLED ANOTHER, GIVING HER THE PAIN MEDICATION NOW.
[2018-12-16 12:26] VITALS: BP 105/57
[2018-12-16 15:59] VITALS: BP 111/59
[2018-12-16 20:00] VITALS: BP 120/58
--- NOTE | 2018-12-16 21:00 | NUR ---
EVENING ROUNDS COMPLETED. PT SITTING UP IN BED WITH EYES OPEN, ANSWERING QUESTIONS APPROPRIATELY. BED IN LOW POSITION. NO S/S OF DISTRESS. INTRODUCED SELF TO PT. PROVIDED PT BED TIME SNACK AND TREATED 210 BLOOD SUGAR WITH ORDERED LANTUS. PT DENIES FURTHER NEEDS AT THIS TIME. CALL LIGHT IN REACH. WILL CTM.
[2018-12-17] VITALS: BP 121/68
--- NOTE | 2018-12-17 01:55 | NUR ---
I have reviewed this patient and I concur with the Shift Assessment completed by the Licensed Practical Nurse today this shift.
--- NOTE | 2018-12-17 03:28 | NUR ---
ADMINISTERED ORDERED ANALGESIC FOR COMPLAINTS OF PAIN IN RIGHT KNEE. PT STATES PAIN OF A 7 ON A SCALE OF 0-10.
[2018-12-17 06:23] LABS: ANION GAP 14.5 mmol/L (8-16); CALCIUM 7.9 mg/dL (8.5-10.1); CARBON DIOXIDE 28.1 mmol/L (21.0-32.0); POTASSIUM - SERUM 3.6 mmol/L (3.5-5.1)
[2018-12-17 06:24] LABS: CREATININE - SERUM 7.6 mg/dL (0.6-1.3)
[2018-12-17 06:56] LABS: BASOPHILS 0.3 % (0-2); EOSINOPHILS 2.2 % (0-7); HEMATOCRIT 25.4 % (36.0-48.0); HEMOGLOBIN 7.9 g/dL (12-16); IMMATURE GRANULOCYTES 0.4 % (0-5); LYMPHOCYTES 9.4 % (15-50); MCH 26.7 pg (26.0-34.0); MCHC 31.1 g/dL (31.0-37.0); MCV 85.8 fL (80.0-100.0); MEAN PLATELET VOLUME 8.7 fL (7.4-10.4); MONOCYTES 7.2 % (2-11); NEUTROPHILS 80.5 % (40-80); PLATELET COUNT 260 10x3/uL (130-400); RBC 2.96 10x6/uL (4.00-5.40); RDW 17.1 % (11.5-14.5); WBC 14.4 10x3/uL (4.8-10.8)
[2018-12-17 08:00] VITALS: BP 116/57
[2018-12-17 11:50] VITALS: BP 113/53
--- NOTE | 2018-12-17 17:31 | NUR ---
ALERT AND ORIENTED X4. SITTING UP IN BED. SPOUSE AT BEDSIDE. NO CHANGE. CONTINUE PLAN OF CARE AND SAFETY PRECAUTIONS.
--- NOTE | 2018-12-17 19:33 | NUR ---
EVENING ROUNDS COMPLETED. REPORT RECEIVED. PT SITTING UP IN BED WITH EYES CLOSED, RR EVEN AND UNLABORED. BED IN LOW POSITION. NO S/S OF DISTRESS NOTED. RT HAND INFUSING 1/2 NS ORDERED. CALL LIGHT IN REACH. WILL CTM.
[2018-12-17 20:00] VITALS: BP 120/61
--- NOTE | 2018-12-17 22:29 | NUR ---
ADMINISTERED ORDERED ANALGESIC FOR PT COMPLAINTS OF PAIN IN RIGHT LOWER EXTREMITY AT INCISION SITE. PT STATES PAIN OF A 8 ON A SCALE OF 0-10.
[2018-12-18] VITALS: BP 129/58
--- NOTE | 2018-12-18 00:03 | NUR ---
I have reviewed this patient and I concur with the Shift Assessment completed by the Licensed Practical Nurse today this shift.
--- NOTE | 2018-12-18 01:13 | NUR ---
ADMINISTERED ORDERED ANALGESIC FOR PT COMPLAINTS OF PAIN IN RIGHT KNEE, PT STATES PAIN OF AN 8 ON A SCALE OF 0-10.
--- NOTE | 2018-12-18 02:50 | NUR ---
PT RESTING QUIETLY IN BED WITH EYES CLOSED, RR EVEN AND UNLABORED. BED IN LOW POSITION. NO S/S OF DISTRESS NOTED. CALL LIGHT IN REACH. WILL CTM.
[2018-12-18 04:30] VITALS: BP 116/59
[2018-12-18 06:43] LABS: BASOPHILS 0.2 % (0-2); EOSINOPHILS 3.6 % (0-7); HEMATOCRIT 23.8 % (36.0-48.0); IMMATURE GRANULOCYTES 0.3 % (0-5); LYMPHOCYTES 11.6 % (15-50); MCH 26.4 pg (26.0-34.0); MCHC 30.7 g/dL (31.0-37.0); MCV 86.2 fL (80.0-100.0); MEAN PLATELET VOLUME 8.9 fL (7.4-10.4); MONOCYTES 8.1 % (2-11); NEUTROPHILS 76.2 % (40-80); PLATELET COUNT 264 10x3/uL (130-400); RBC 2.76 10x6/uL (4.00-5.40); RDW 17.3 % (11.5-14.5); WBC 12.3 10x3/uL (4.8-10.8)
[2018-12-18 06:46] LABS: HEMOGLOBIN 7.3 g/dL (12-16)
[2018-12-18 06:52] LABS: ANION GAP 14.5 mmol/L (8-16); CALCIUM 8.1 mg/dL (8.5-10.1); CARBON DIOXIDE 29.4 mmol/L (21.0-32.0); CREATININE - SERUM 9.4 mg/dL (0.6-1.3); POTASSIUM - SERUM 3.9 mmol/L (3.5-5.1); VANCOMYCIN - RANDOM 31.9 ug/mL (10.0-20.0)
[2018-12-18 08:55] VITALS: BP 139/68
--- NOTE | 2018-12-18 11:51 | NUR ---
TAKEN TO DIALYSIS VIA WHEELCHAIR.
--- NOTE | 2018-12-18 12:19 | NUR ---
Nutrition follow-up: Diet: Renal ADA PO intake ~75-100% of meals labs reviewed Pt is PO day #4 of right BKA Wt: 189# RDN following.
[2018-12-18 18:15] VITALS: BP 135/69
--- NOTE | 2018-12-18 19:29 | NUR ---
PT IS ON THPHONE AND DOES NOT WANT TO GET OFF SKIN WARM AND DRY AND BED LOW AND LOCKED CALL LIGHT IS IN REACH I WILL FULLY ASSESS AT A LATER TIME NO NOTED DISTRESS AT ALL
[2018-12-18 20:00] VITALS: BP 114/50
[2018-12-19] VITALS: BP 162/51
[2018-12-19 04:00] VITALS: BP 147/71
--- NOTE | 2018-12-19 05:12 | NUR ---
I have reviewed this patient and I concur with the Shift Assessment completed by the Licensed Practical Nurse today this shift.
[2018-12-19 05:13] LABS: BASOPHILS 0.5 % (0-2); EOSINOPHILS 4.3 % (0-7); IMMATURE GRANULOCYTES 0.4 % (0-5); LYMPHOCYTES 13.3 % (15-50); MCH 28.6 pg (26.0-34.0); MCHC 32.8 g/dL (31.0-37.0); MCV 87.3 fL (80.0-100.0); MEAN PLATELET VOLUME 8.8 fL (7.4-10.4); MONOCYTES 9.4 % (2-11); NEUTROPHILS 72.1 % (40-80); PLATELET COUNT 277 10x3/uL (130-400); RDW 16.8 % (11.5-14.5); WBC 11.3 10x3/uL (4.8-10.8)
[2018-12-19 05:34] LABS: HEMATOCRIT 29.6 % (36.0-48.0); HEMOGLOBIN 9.7 g/dL (12-16); RBC 3.39 10x6/uL (4.00-5.40)
[2018-12-19 05:44] LABS: ANION GAP 13.1 mmol/L (8-16); CALCIUM 8.7 mg/dL (8.5-10.1); CARBON DIOXIDE 29.6 mmol/L (21.0-32.0); POTASSIUM - SERUM 3.7 mmol/L (3.5-5.1); VANCOMYCIN - RANDOM 27.6 ug/mL (10.0-20.0)
[2018-12-19 05:51] LABS: CREATININE - SERUM 6.3 mg/dL (0.6-1.3)
[2018-12-19] MEDS ORDERED: HYDROCODON-ACE1 EAC7 PO (08:55)
--- NOTE | 2018-12-19 09:50 | MORECARE ---
CASE MANAGEMENT DISCHARGE SUMMARY PATIENT: DEON MILLER UNIT: [id number] ADM DATE: 12/14/18 AGE: 63 : 59 SEX: F ROOM/BED: D.1840 AUTHOR: JAY,DOC PHYSICIAN: REFERRING PHYSICIAN: CHRISTOPHER RUEDA MD DATE OF SERVICE: 12/19/18 Discharge Plan Patient Name: DEON MILLER Facility: [facility]:[place] : 1955 Planned Disposition: Prison Facility Anticipated Discharge Date: 12/19/18 Discharge Date: Expected LOS: 5 Initial Reviewer: GEN Initial Review Date: 12/14/2018 Generated: 12/19/18 10:50 am DCPIA - Discharge Planning Initial Assessment Updated by GEN: Klever Chavez on 12/19/18 9:47 am * Is the patient Alert and Oriented? Yes * How many steps to enter\exit or inside your home? * PCP DR. TABOR, [facility] * Pharmacy [facility] IN [place] * Preadmission Environment Home with Family * ADLs Independent * Equipment Glucometer Other * Other Equipment KNEE WALKER [facility]QUIPMENT PROVIDER * List name and contact numbers for known caregivers / representatives who currently or will assist patient after discharge: AVRIL MILLER, SPOUSE, * Verbal permission to speak to the caregivers and representatives has been obtained from the patient. N/A * Community resources currently utilized Home Health Other * Please name any agencies selected above. [facility] OUTPATIENT [facility], [facility], [place], [facility], 0630AM, SPOUSE DRIVES * Additional services required to return to the preadmission environment? Yes * Can the patient safely return to the preadmission environment? Yes * Has this patient been hospitalized within the prior 30 days at any hospital? No External Providers External Provider: [facility] Next Contact Date: 12/19/2018 Service Request Date: Service Type: Resolution: Reviewer: Comments: External Provider: [facility] Next Contact Date: 12/19/2018 Service Request Date: Service Type: Resolution: Reviewer: Comments: Coverage Notice Reviewer: [id number] Elvi Chavez Notice Issued Date-Time: 12/19/2018 9:10 Notice Type: IM Discharge Notice Notice Delivered To: Patient Relationship to Patient: Ticket Broker Name: Delivery Method: HAND - Hand Delivered Venus Days: Prior Verbal Notification: Recipient Understood Notice: Yes Recipient Signature: Yes Med Rec Note Co-signed by Attending: Coverage Notice Comment: Reviewer: [id number] Elvi Chavez Notice Issued Date-Time: 12/19/2018 9:10 Notice Type: Patient Choice Letter Notice Delivered To: Patient Relationship to Patient: Ticket Broker Name: Delivery Method: HAND - Hand Delivered Venus Days: Prior Verbal Notification: Recipient Understood Notice: Yes Recipient Signature: Yes Med Rec Note Co-signed by Attending: Coverage Notice Comment: [facility]- [facility], 2- [facility]. Patient Name: DEON MILLER Page [phone] at 0950 All edits/amendments must be made on the electronic document DICTATION DATE: 12/19/18949 SPECIALIST MANAGERS: JUWAN 12/19/18 0950 RPT#: [id number] DC DATE: STATUS: ADM IN [facility] [address] [place] [address] END OF REPORT
--- NOTE | 2018-12-19 10:05 | MORECARE ---
CASE MANAGEMENT DISCHARGE SUMMARY PATIENT: DEON MILLER UNIT: [id number] ADM DATE: 12/14/18 AGE: 63 : 59 SEX: F ROOM/BED: D.9020 AUTHOR: JAY,DOC PHYSICIAN: REFERRING PHYSICIAN: CHRISTOPHER RUEDA MD DATE OF SERVICE: 12/19/18 Discharge Plan Patient Name: DEON MILLER Facility: [facility]:[place] : 1955 Planned Disposition: Jail Facility Anticipated Discharge Date: 12/19/18 Discharge Date: Expected LOS: 5 Initial Reviewer: [id number] Initial Review Date: 12/14/2018 Generated: 12/19/18 11:05 am Comments DCP- Discharge Planning Updated by [email or web address]: Klever Chavez on 12/19/18 8:[address] Patient Name: DEON MILLER Admission Status: Elective Accout number: [id number] Admission Date: 12-14-2018 : 1955 Admission Diagnosis:CHARCOT'S ARTHROPATHY (TABETIC) Attending: CHRISTOPHER RUEDA Current LOS: 5 Anticipated DC Date: 12-19-2018 Planned Disposition: Jail Facility Primary Insurance: [employer] PPO PLANNED EXTERNAL PROVIDER: [facility] COMMERCIAL INSURANCE REHAB BED Discharge Planning Comments: CM SPOKE TO ROWAN DINH WHO NOTIFIED OF ORDER PLACED LAST TUESDAY FOR DISCHARGE PLANNING, NOTIFIED CM THAT PT WANTS REHAB IN [place], PT IS STABLE FOR DISCHARGE TODAY. CM MET WITH PT IN ROOM TO DISCUSS DISCHARGE PLANNING AND NEEDS. PT REPORTS LIVING AT HOME INDEPENDENTLY WITH HER SPOUSE. PT HAS KNEE WALKER AND GLUCOMETER, LAST MEDICAL EQUIPMENT PROVIDER USED IS [employer]. PT HAS HOME HEALTH WITH [facility] WOUND CARE AND OUTPATIENT DIALYLSIS IN [place], MWF, 0630AM SPOUSE DRIVES TO AND FROM DIALYSIS. CM DISCUSSED AVAILABILITY OF HOME HEALTH, REHAB SERVICES AND MEDICAL EQUIPMENT. PT WANTS REHAB IN [place]; CM ASSISTED WITH PROVIDING LISTING OF PROVIDERS AND LOCATIONS OF SENIOR LIVING REHABS IN [place]. PT SIGNED CHOICE FOR [facility] SECOND CHO[facility]. IMPORTANT MESSAGE FROM MEDICARE PROVIDED AND EXPLAINED. CM CALLED [facility], , LEFT DETAILED MESSAGE FOR SUMMER AND PROVIDED REFERRAL INFORMATION. CM FAXED REFERRAL INFORMATION TO [facility] AT [phone]. CM NOTIFIED VIRIDIANA, CLINICAL LIAISON FOR [facility], , ASKED FOR ASSESSMENT FOR REHAB ADMISSION. CM FAXED REFERRAL TO [facility] VIA VIRIDIANA AT [phone]. CM WAITING ADMISSION DETERMINATIONS FROM [facility] Sand Worker: Klever Chavez DCPIA - Discharge Planning Initial Assessment Updated by [id number]: Klever Chavez on 12/19/18 9:47 am * Is the patient Alert and Oriented? Yes * How many steps to enter\exit or inside your home? * PCP DR. TABOR, [facility] * Pharmacy [facility] IN [place] * Preadmission Environment Home with Family * ADLs Independent * Equipment Glucometer Other * Other Equipment KNEE WALKER [employer] LAST MEDICAL EQUIPMENT PROVIDER * List name and contact numbers for known caregivers / representatives who currently or will assist patient after discharge: AVRIL MILLER, SPOUSE, * Verbal permission to speak to the caregivers and representatives has been obtained from the patient. N/A * Community resources currently utilized Home Health Other * Please name any agencies selected above. [facility]UR[facility] FOR WOUND CARE OUTPATIENT DIALYSIS, [facility], [place], [facility], 0630AM, SPOUSE DRIVES * Additional services required to return to the preadmission environment? Yes * Can the patient safely return to the preadmission environment? Yes * Has this patient been hospitalized within the prior 30 days at any hospital? No Coverage Notice Reviewer: GEN Chavez Notice Issued Date-Time: 12/19/2018 9:10 Notice Type: IM Discharge Notice Notice Delivered To: Patient Relationship to Patient: Packing Line Worker Name: Delivery Method: HAND - Hand Delivered Venus Days: Prior Verbal Notification: Recipient Understood Notice: Yes Recipient Signature: Yes Med Rec Note Co-signed by Attending: Coverage Notice Comment: Reviewer: GEN Chavez Notice Issued Date-Time: 12/19/2018 9:10 Notice Type: Patient Choice Letter Notice Delivered To: Patient Relationship to Patient: Packing Line Worker Name: Delivery Method: HAND - Hand Delivered Venus Days: Prior Verbal Notification: Recipient Understood Notice: Yes Recipient Signature: Yes Med Rec Note Co-signed by Attending: Coverage Notice Comment: 1- [facility], [facility]- [facility]. Last DP export: 12/19/18 8:50 a Patient Name: DEON MILLER Page [phone] at 1005 All edits/amendments must be made on the electronic document DICTATION DATE: 12/19/18 100 FOOTWEAR SALES ASSOCIATE: JUWAN 12/19/18 1004 RPT#: [id number] DC DATE: STATUS: ADM IN [facility] [address] [place] [address] END OF REPORT
--- NOTE | 2018-12-19 12:33 | MORECARE ---
CASE MANAGEMENT DISCHARGE SUMMARY PATIENT: DEON MILLER UNIT: [id number] ADM DATE: 12/14/18 AGE: 63 : 59 SEX: F ROOM/BED: D.845 AUTHOR: JAY,DOC PHYSICIAN: REFERRING PHYSICIAN: CHRISTOPHER RUEDA MD DATE OF SERVICE: 12/19/18 Discharge Plan Patient Name: DEON MILLER Facility: [facility]:[place] : 1955 Planned Disposition: Mcfp Facility Anticipated Discharge Date: 12/19/18 Discharge Date: Expected LOS: 5 Initial Reviewer: [id number] Initial Review Date: 12/14/2018 Generated: 12/19/18 1:33 pm Comments DCP- Discharge Planning Updated by [email or web address]: Klever Chavez on 12/19/18 11:[address] Patient Name: DEON MILLER Encounter No: [id number] : 1955 Primary Insurance: [employer] PPO Anticipated DC Date: 12-19-2018 Planned Disposition: Mcfp Facility External Planned Provider: [facility], PRIVATE INSURANCE REHAB BED DCP follow-up note: CM RECEIVED CALL FROM [facility], THEY HAVE INSURANCE AUTHORIZATION AND WILL ACCEPT PT TODAY. [employer] MEMBERSHIP SALES AGENT PT AFTER 1PM TODAY. CM NOTIFIED ROWAN DINH. CM NOTIFIED PT WHO IS IN AGREEMENT WITH DISCHARGE TO [facility] TODAY. CM WAS ADVISED THAT [facility] IS DELIVERING A STUMP PROTECTOR TODAY, CM CALLED [facility], , LEFT MESSAGE WITH PERSON ANSWERING THE PHONE THAT PT WILL BE LEAVING AFTER 1PM VIA VAN TO [facility] IN [place], IN ATTEMPT TO EXPEDITE DELIVERY OF STUMP PROTECTOR TO HOSPITAL PRIOR TO PT LEAVING TODAY. BUSINESS SUPPORT NURSE NOTIFIED. NURSE REPORT TO BE CALLED TO [facility] AT [phone]. [facility] TO ARRANGE VAN TRANSPORTATION AFTER 1300 HOURS TODAY. Klever Chavez, CASE MANAGEMENT DCP- Discharge Planning Updated by [id number]: Klever Chavez on 12/19/18 8:[address] Patient Name: DEON MILLER Admission Status: Elective Accout number: [id number] Admission Date: 12-14-2018 : 1955 Admission Diagnosis:CHARCOT'S ARTHROPATHY (TABETIC) Attending: CHRISTOPHER RUEDA Current LOS: 5 Anticipated DC Date: 12-19-2018 Planned Disposition: Mcfp Facility Primary Insurance: [facility] PPO PLANNED EXTERNAL PROVIDER: [facility], COMMERCIAL INSURANCE REHAB BED Discharge Planning Comments: CM SPOKE TO ROWAN DINH WHO NOTIFIED OF ORDER PLACED LAST TUESDAY FOR DISCHARGE PLANNING, NOTIFIED CM THAT PT WANTS REHAB IN [place], PT IS STABLE FOR DISCHARGE TODAY. CM MET WITH PT IN ROOM TO DISCUSS DISCHARGE PLANNING AND NEEDS. PT REPORTS LIVING AT HOME INDEPENDENTLY WITH HER SPOUSE. PT HAS KNEE WALKER AND GLUCOMETER, LAST MEDICAL EQUIPMENT PROVIDER USED IS [employer]. PT HAS HOME HEALTH WITH [facility] FOR NURS[facility] WOUND CARE AND OUTPATIENT DIALYLSIS IN [place], MWF, 0630AM SPOUSE DRIVES TO AND FROM DIALYSIS. CM DISCUSSED AVAILABILITY OF HOME HEALTH, REHAB SERVICES AND MEDICAL EQUIPMENT. PT WANTS REHAB IN [place]; CM ASSISTED WITH PROVIDING LISTING OF PROVIDERS AND LOCATIONS OF HALF-WAY REHABS IN [place]. PT SIGNED CHOICE FOR [facility] SECOND CHOICE. IMPORTANT MESSAGE FROM MEDICARE PROVIDED AND EXPLAINED. CM CALLED [facility], , LEFT DETAILED MESSAGE FOR SUMMER AND PROVIDED REFERRAL INFORMATION. CM FAXED REFERRAL INFORMATION TO [facility] AT [phone]. CM NOTIFIED VIRIDIANA, CLINICAL LIAISON FOR [facility], , ASKED FOR ASSESSMENT FOR REHAB ADMISSION. CM FAXED REFERRAL TO [facility] VIA VIRIDIANA AT [phone]. CM WAITING ADMISSION DETERMINATIONS FROM [facility] Ssn/Ssbn Weapons Equipment Operator: Klever Chavez DCPIA - Discharge Planning Initial Assessment Updated by [id number]: Klever Chavez on 12/19/18 9:47 am * Is the patient Alert and Oriented? Yes * How many steps to enter\exit or inside your home? * PCP DR. TABOR, [facility] * Pharmacy [facility] IN [place] * Preadmission Environment Home with Family * ADLs Independent * Equipment Glucometer Other * Other Equipment KNEE WALKER [employer] - LAST MEDICAL EQUIPMENT PROVIDER * List name and contact numbers for known caregivers / representatives who currently or will assist patient after discharge: AVRIL MILLER, SPOUSE, * Verbal permission to speak to the caregivers and representatives has been obtained from the patient. N/A * Community resources currently utilized Home Health Other * Please name any agencies selected above. [facility] FOR WOUND CARE OUTPATIENT DIALYSIS, [facility], [place], 0630AM, SPOUSE DRIVES * Additional services required to return to the preadmission environment? Yes * Can the patient safely return to the preadmission environment? Yes * Has this patient been hospitalized within the prior 30 days at any hospital? No Coverage Notice Reviewer: [email or web address] Chavez Notice Issued Date-Time: 12/19/2018 9:10 Notice Type: IM Discharge Notice Notice Delivered To: Patient Relationship to Patient: Bus And Trolley Dispatcher Name: Delivery Method: HAND - Hand Delivered Venus Days: Prior Verbal Notification: Recipient Understood Notice: Yes Recipient Signature: Yes Med Rec Note Co-signed by Attending: Coverage Notice Comment: Reviewer: GEN Chavez Notice Issued Date-Time: 12/19/2018 9:10 Notice Type: Patient Choice Letter Notice Delivered To: Patient Relationship to Patient: Bus And Trolley Dispatcher Name: Delivery Method: HAND - Hand Delivered Venus Days: Prior Verbal Notification: Recipient Understood Notice: Yes Recipient Signature: Yes Med Rec Note Co-signed by Attending: Coverage Notice Comment: 1- [facility], 2- [facility]. Last DP export: 12/19/18 9:05 a Patient Name: DEON MILLER Page [phone] at 1233 All edits/amendments must be made on the electronic document DICTATION DATE: 12/19/18 1233 COMMUNITY PHARMACIST: JUWAN 12/19/18 1233 RPT#: [id number] DC DATE: STATUS: ADM IN [facility] [address] [place] [place] [address] END OF REPORT
--- NOTE | 2018-12-19 13:33 | MORECARE ---
CASE MANAGEMENT DISCHARGE SUMMARY PATIENT: DEON MILLER UNIT: [id number] ADM DATE: 12/14/18 AGE: 63 : 59 SEX: F ROOM/BED: D.281 AUTHOR: JAY,DOC PHYSICIAN: REFERRING PHYSICIAN: CHRISTOPHER RUEDA MD DATE OF SERVICE: 12/19/18 Discharge Plan Patient Name: DEON MILLER Facility: [facility]:[place] : 1955 Planned Disposition: Snf Facility Anticipated Discharge Date: 12/19/18 Discharge Date: Expected LOS: 5 Initial Reviewer: [id number] Initial Review Date: 12/14/2018 Generated: 12/19/18 2:33 pm Comments DCP- Discharge Planning Updated by [email or web address]: Klever Chavez on 12/19/18 11:[address] Patient Name: DEON MILLER Encounter No: [id number] : 1955 Primary Insurance: [employer] PPO Anticipated DC Date: 12-19-2018 Planned Disposition: Snf Facility External Planned Provider: [facility], PRIVATE INSURANCE REHAB BED DCP follow-up note: CM RECEIVED CALL FROM [facility], THEY HAVE INSURANCE AUTHORIZATION AND WILL ACCEPT PT TODAY. [place] CAN SKATING RINK MANAGER PT AFTER 1PM TODAY. CM NOTIFIED ROWAN DINH. CM NOTIFIED PT WHO IS IN AGREEMENT WITH DISCHARGE TO [facility] TODAY. CM WAS ADVISED THAT [facility] IS DELIVERING A STUMP PROTECTOR TODAY, CM CALLED [facility], , LEFT MESSAGE WITH PERSON ANSWERING THE PHONE THAT PT WILL BE LEAVING AFTER 1PM VIA VAN TO [facility] IN [place], IN ATTEMPT TO EXPEDITE DELIVERY OF STUMP PROTECTOR TO HOSPITAL PRIOR TO PT LEAVING TODAY. CLIENT ACCOUNT ASSISTANT NURSE NOTIFIED. NURSE REPORT TO BE CALLED TO [facility] AT [phone]. [facility] TO ARRANGE VAN TRANSPORTATION AFTER 1300 HOURS TODAY. Klever Chavez, CASE MANAGEMENT DCP- Discharge Planning Updated by [id number]: Klever Chavez on 12/19/18 8:[address] Patient Name: DEON MILLER Admission Status: Elective Accout number: [id number] Admission Date: 12-14-2018 : 1955 Admission Diagnosis:CHARCOT'S ARTHROPATHY (TABETIC) Attending: CHRISTOPHER RUEDA Current LOS: 5 Anticipated DC Date: 12-19-2018 Planned Disposition: Snf Facility Primary Insurance: [facility] PPO PLANNED EXTERNAL PROVIDER: [facility], COMMERCIAL INSURANCE REHAB BED Discharge Planning Comments: CM SPOKE TO ROWAN DINH WHO NOTIFIED OF ORDER PLACED LAST TUESDAY FOR DISCHARGE PLANNING, NOTIFIED CM THAT PT WANTS REHAB IN [place], PT IS STABLE FOR DISCHARGE TODAY. CM MET WITH PT IN ROOM TO DISCUSS DISCHARGE PLANNING AND NEEDS. PT REPORTS LIVING AT HOME INDEPENDENTLY WITH HER SPOUSE. PT HAS KNEE WALKER AND GLUCOMETER, LAST MEDICAL EQUIPMENT PROVIDER USED IS [employer]. PT HAS HOME HEALTH WITH [facility] FOR NURS[facility] WOUND CARE AND OUTPATIENT DIALYLSIS IN [place], MWF, 0630AM SPOUSE DRIVES TO AND FROM DIALYSIS. CM DISCUSSED AVAILABILITY OF HOME HEALTH, REHAB SERVICES AND MEDICAL EQUIPMENT. PT WANTS REHAB IN [place]; CM ASSISTED WITH PROVIDING LISTING OF PROVIDERS AND LOCATIONS OF HALF-WAY REHABS IN [place]. PT SIGNED CHOICE FOR [facility] SECOND CHO[facility]. IMPORTANT MESSAGE FROM MEDICARE PROVIDED AND EXPLAINED. CM CALLED [facility], , LEFT DETAILED MESSAGE FOR SUMMER AND PROVIDED REFERRAL INFORMATION. CM FAXED REFERRAL INFORMATION TO [facility] AT [phone]. CM NOTIFIED VIRIDIANA, CLINICAL LIAISON FOR [facility], , ASKED FOR ASSESSMENT FOR REHAB ADMISSION. CM FAXED REFERRAL TO [facility] VIA VIRIDIANA AT [phone]. CM WAITING ADMISSION DETERMINATIONS FROM [facility] Weight Loss Counselor: Klever Chavez DCPIA - Discharge Planning Initial Assessment Updated by [id number]: Klever Chavez on 12/19/18 9:47 am * Is the patient Alert and Oriented? Yes * How many steps to enter\exit or inside your home? * PCP DR. TABOR, [facility] * Pharmacy [facility] IN [place] * Preadmission Environment Home with Family * ADLs Independent * Equipment Glucometer Other * Other Equipment KNEE WALKER [employer] - LAST MEDICAL EQUIPMENT PROVIDER * List name and contact numbers for known caregivers / representatives who currently or will assist patient after discharge: AVRIL MILLER, SPOUSE, * Verbal permission to speak to the caregivers and representatives has been obtained from the patient. N/A * Community resources currently utilized Home Health Other * Please name any agencies selected above. [facility]- NURSING FOR WOUND CARE OUTPATIENT DIALYSIS, [facility], [place], 0630AM, SPOUSE DRIVES * Additional services required to return to the preadmission environment? Yes * Can the patient safely return to the preadmission environment? Yes * Has this patient been hospitalized within the prior 30 days at any hospital? No Coverage Notice Reviewer: [id number] Chavez Notice Issued Date-Time: 12/19/2018 9:10 Notice Type: IM Discharge Notice Notice Delivered To: Patient Relationship to Patient: Radiation Technician Name: Delivery Method: HAND - Hand Delivered Venus Days: Prior Verbal Notification: Recipient Understood Notice: Yes Recipient Signature: Yes Med Rec Note Co-signed by Attending: Coverage Notice Comment: Reviewer: GEN Chavez Notice Issued Date-Time: 12/19/2018 9:10 Notice Type: Patient Choice Letter Notice Delivered To: Patient Relationship to Patient: Radiation Technician Name: Delivery Method: HAND - Hand Delivered Venus Days: Prior Verbal Notification: Recipient Understood Notice: Yes Recipient Signature: Yes Med Rec Note Co-signed by Attending: Coverage Notice Comment: 1- [facility], 2- [facility]. Last DP export: 12/19/18 11:33 a Patient Name: DEON MILLER Page [phone] at 1333 All edits/amendments must be made on the electronic document DICTATION DATE: 12/19/18 1333 SCROLL SAW OPERATOR: JUWAN 12/19/18 1333 RPT#: [id number] DC DATE: STATUS: ADM IN [facility] [address] [place] [address] END OF REPORT
--- NOTE | 2018-12-19 14:27 | NUR ---
ALERT AND ORIENTED X4. SITTING UP IN BED. [facility] ARRIVES FOR TRANSPORTATION. ASSIST GETTING DRESSED. DC RT HAND IV TIP INTACT. DISCHARGE INSTRUCTIONS GIVEN VERBALLY AND WRITTEN. DISCHARGE PAPERS SIGNED ON CHART. [facility] FROM [facility] ARRIV[facility]. BRACE SECURED ON RT LEG. 2 PERSON ASSIST TO WHEELCHAIR. ESCORT TO VAN. REMAINS FREE FROM INJURY. CALL REPORT TO IZAIAH OSBORN AT [facility].
== END 2018-12-19 14:31 | DRG 617 ==
LOC: D.SDCHOLD 12-14 09:47 → D.M2 12-14 09:47 → D.SDCHOLD 12-14 13:00 → D.M2 12-14 15:37
PROVIDERS: Anesthesiology; Internal Medicine Nephrology; ADMIT Orthopaedic Surgery; ATTEND Orthopaedic Surgery
PROC: 0Y6H0Z2 Detachment at Right Lower Leg, Mid, Open Approach (ICD-10-PCS; principal; 2018-12-14 13:00)
DX: E11.69 Type 2 diabetes mellitus with other specified complication (principal); A52.16 Charcot's arthropathy (tabetic); M86.671 Other chronic osteomyelitis, right ankle and foot; I12.0 Hypertensive chronic kidney disease with stage 5 chronic kidney disease or end stage renal disease; N18.6 End stage renal disease; E11.22 Type 2 diabetes mellitus with diabetic chronic kidney disease; E11.621 Type 2 diabetes mellitus with foot ulcer; L97.519 Non-pressure chronic ulcer of other part of right foot with unspecified severity; E78.5 Hyperlipidemia, unspecified; D63.1 Anemia in chronic kidney disease

== ENCOUNTER 2019-05-28 01:35 | Emergency (ER) | payer OTHER, MEDICARE ==
[~2019-05-28] VITALS: Ht 160 cm; Wt 88.6 kg
[~2019-05-28 01:35] MED LIST changes: +LANTUS SC
[2019-05-28 01:46] VITALS: Ht 160 cm; Wt 88.6 kg
[2019-05-28] MEDS ORDERED: ULTRAM50 MG PO (01:51)
[2019-05-28] MEDS ORDERED: BASAGLAR K100 UNIT/1 SC (01:52)
[2019-05-28 02:07] LABS: BASOPHILS 0.1 % (0-2); EOSINOPHILS 0.3 % (0-7); HEMATOCRIT 34.5 % (36.0-48.0); HEMOGLOBIN 10.8 g/dL (12-16); IMMATURE GRANULOCYTES 0.4 % (0-5); LYMPHOCYTES 6.5 % (15-50); MCH 30.8 pg (26.0-34.0); MCHC 31.3 g/dL (31.0-37.0); MCV 98.3 fL (80.0-100.0); MONOCYTES 3.4 % (2-11); NEUTROPHILS 89.3 % (40-80); PLATELET COUNT 221 10x3/uL (130-400); RBC 3.51 10x6/uL (4.00-5.40); RDW 15.5 % (11.5-14.5); WBC 15.6 10x3/uL (4.8-10.8)
[2019-05-28 02:15] LABS: CALC OSMOLALITY 303 mosm/kg (275-300); CALCIUM 8.5 mg/dL (8.5-10.1); CARBON DIOXIDE 26.1 mmol/L (21.0-32.0); CHLORIDE - SERUM 102 mmol/L (98-107); CREATININE - SERUM 8.8 mg/dL (0.6-1.3); GLUCOSE 242 mg/dL (74-106); POTASSIUM - SERUM 4.3 mmol/L (3.5-5.1); SODIUM 141 mmol/L (136-145); UREA NITROGEN 54 mg/dL (7-18); eGFR NON AFRICAN AMERICAN 5 mL/min (90-120)
[2019-05-28 02:23] LABS: ALBUMIN 3.4 g/dL (3.4-5.0); ALKALINE PHOSPHATASE 121 U/L (46-116); ALT (SGPT) 12 U/L (10-68); AMYLASE - SERUM 70 U/L (25-115); BILIRUBIN - TOTAL 0.31 mg/dL (0.2-1.3); LIPASE 160 U/L (73-393); PROTEIN - SERUM 7.9 g/dL (6.4-8.2); TROPONIN-I < 0.017 ng/mL (0.000-0.060)
[2019-05-28 05:12] VITALS: BP 108/59
== END 2019-05-28 05:12 | disposition short-term general hospital (02) ==
LOC: D.ER 01:35
PROVIDERS: Family Medicine
DX: N13.2 Hydronephrosis with renal and ureteral calculous obstruction (principal); I12.0 Hypertensive chronic kidney disease with stage 5 chronic kidney disease or end stage renal disease; E11.22 Type 2 diabetes mellitus with diabetic chronic kidney disease; N18.6 End stage renal disease; Z99.2 Dependence on renal dialysis; Z79.4 Long term (current) use of insulin; Z86.73 Personal history of transient ischemic attack (TIA), and cerebral infarction without residual deficits; E78.5 Hyperlipidemia, unspecified; E11.40 Type 2 diabetes mellitus with diabetic neuropathy, unspecified